=== PATIENT | male | born 1960 | race Caucasian/White ===

== ENCOUNTER 2019-12-21 11:53 | Inpatient (IN) ==
--- NOTE | 2019-12-21 13:17 | Emergency Department Note ---
Impression & Plan COVID-19 virus infection, Hypoxia, Acute dyspnea ED Provider Note Provider: Desmond Rojas MD DATE OF SERVICE: 12/21/2019 CHIEF COMPLAINT: Shortness of breath HISTORY OF PRESENT ILLNESS: Patient is a 59-year-old gentleman history of mitral valve prolapse, hypertension, hyperlipidemia on atorvastatin metoprolol presenting today for hypoxia via ambulance from home. Patient recent travel 2 w eeks ago to [place] returned home with his . Approximately 10 days ago began to have some mild fevers or shortness of breath along with his . Tested approximately 6 days ago for coronavirus and was positive. Monitoring himself at home with antipyretics and monitoring his pulse ox. States over the last several days he has worsening shortness of breath and swelling as well as recurrent fevers fatigue and myalgias. Today he stated his pulse ox at home got down to the mid 80s and he was short of breath so he called 911. Patient denies significant GI upset or abdominal pain at this time. Denies any leg swelling. Did take some Tylenol around noon today and febrile upon arrival. Patient is not a smoker. Minimal chest discomfort at this time. Moderate headache and dry slight cough. REVIEW OF SYSTEMS: A total of 10 review of systems was obtained and negative except as stated above in the HPI. PAST MEDICAL HISTORY: As noted above MEDICATIONS: Reviewed medications include atorvastatin metoprolol SOCIAL HISTORY: Lives at home with , non-smoker PHYSICAL EXAM: GENERAL: alert and oriented in no acute distress on stretcher on oxygen appears fatigued Head: normocephalic and atraumatic EYES: No injection, discharge or icterus. PERRL, EOMI. NECK: Trachea midline. Supple. ENT: Mucous membranes pink and moist. Pharynx without erythema or exudate. LUNGS: Airway patent. No retractions. Breath sounds clear but some increased work of breathing. HEART: Regular rate and rhythm. No chest wall tenderness ABDOMEN: Soft and non-tender, without guarding or rebound. SKIN: Acyanotic, warm, dry, without rashes EXTREMITIES: Without swelling, tenderness or deformity NEUROLOGICAL: No focal deficits. No aphasia. No facial droop or slurred speech. EK bpm sinus rhythm first-degree AV block. No PVC. No acute ST segment elevation notable. CONTINUOUS CARDIAC MONITORING: was ordered and showed a heart rate of 98 bpm in first-degree AV block Patient's hypertension was referred to the hospitalist HOSPITAL COURSE: 1258 Patient was first seen and H&P performed. 1415 Patient reassessed and updated. Patient was agreeable with the plan for admission. 1440 discussed with the [facility] hospitalist Dr. Tidwell. Patient's laboratory studies and imaging reviewed. Differential includes Reactive airway disease, pneumonia, pneumothorax, COPD, CHF, infections, cardiac ischemia, pulmonary embolism, musculoskeletal, gastrointestinal, as well as other pathologies. IMPRESSION/MEDICAL DECISION MAKING: Patient presents with known coronavirus positive worsening shortness of breath hypoxia fevers and myalgias. Hypoxic on room air. Persistent fevers. Recent travel to notice of leg swelling. I have a lower suspicion this represents acute DVT. Troponin is detectable but not abnormal concerns could be more demand as he does not have real chest pain complaints more of dyspnea. Not anticoagulated at home. No leukocytosis. Mild lymphopenia. Ferritin is e levated. Concerns this is worsening COVID infection. Some improvement with some nasal cannula oxygen here. To close for additional Tylenol upon initial evaluation given he took some just at noon. Blood cultures and lactate were sent as well. Lower suspicion for bacterial infection although the chest x-ray shows bilateral parenchymal findings I believe this is likely more of a viral syndrome. Patient requires hospitalization and he was in agreement with this. Will defer any experimental treatment modalities to the inpatient team at this time. DIAGNOSIS: Hypoxia, COVID-19 infection, shortness of breath DISPOSITION: Hospitalist will evaluate Patient was agreeable with this plan. Past Med/Surg History Medical History (Updated 12/21/19 @ 15:50 by Osmany Tidwell MD) Non-sustained ventricular tachycardia Paroxysmal atrial fibrillation Social History Preferred Language: Upper Sorbian Communication Ability: Effective Administrative Specialist Required: No Beliefs That Will Affect Care: None Current Living Situation: Spouse Other Information That Helps Us Care for You: No Feels Safe at Home: Yes Safety Concerns: Feels Safe At This Time Smoking Status: Never smoker Tobacco Type: cigars ; Hx Alcohol Use: Yes Alcohol type: beer, wine and hard liquor Hx Substance Use: No Allergies Allergies Allergy/AdvReac Type Severity Reaction Status Date / Time Penicillins Allergy Mild Verified 12/21/19 14:43 Home Meds Home Medications Medication Instructions Recorded Confirmed atorvastatin 20 mg PO HS 12/21/19 12/21/19 metoprolol succinate 50 mg PO QAM 12/21/19 12/21/19 metoprolol succinate 100 mg PO HS 12/21/19 12/21/19 naproxen 500 mg PO DAILY 12/21/19 12/21/19 Results & Data (ED) Vital Signs Vital Signs - 24 hr 12/21/19 12:04 12/21/19 13:25 12/21/19 13:43 Temperature 38.4 C H Temperature Source Oral Pulse Rate 94 H Pulse Rate [Apical] 101 H Pulse Rate from SpO2 Sensor Respiratory Rate 20 22 Blood Pressure 141/73 H Blood Pressure [Left Arm] 156/86 H Blood Pressure Mean 95 Blood Pressure Mean [Left Arm] 109 Pulse Oximetry 90 95 94 Oxygen Delivery Method Room Air Nasal Cannula Nasal Cannula Nasal Cannula Oxygen Flow Rate 0 3 3 Sepsis Recent Fever Within 48 Hours Yes Sepsis New/Unexplained Change in Mental Status No Sepsis Action Taken by Nursing No Action Required Oxygen Flow Rate - Titration 2.5 Pulse Oximetry Post Tiitration 94 12/21/19 14:30 Temperature Temperature Source Pulse Rate Pulse Rate [Apical] Pulse Rate from SpO2 Sensor 92 H Respiratory Rate Blood Pressure 149/89 H Blood Pressure [Left Arm] Blood Pressure Mean 127 Blood Pressure Mean [Left Arm] Pulse Oximetry 96 Oxygen Delivery Method Oxygen Flow Rate Sepsis Recent Fever Within 48 Hours Sepsis New/Unexplained Change in Mental Status Sepsis Action Taken by Nursing Oxygen Flow Rate - Titration Pulse Oximetry Post Tiitration Laboratory Data Result diagrams: 12/21/19 12:16 12/21/19 14:06 Lab Results 12/21/19 12/21/19 12/21/19 Range/Units 12:16 12:16 12:16 WBC 5.71 (4.8-10.8) K/uL RBC 4.82 (4.7-6.1) M/uL Hgb 15.0 (14.0-18.0) g/dL Hct 42.2 (42-52) % MCV 87.6 (80-100) fL MCH 31.1 (25-34) pg MCHC 35.5 (32-36) g/dL RDW Std Deviation 42.8 (36.4-46.3) fL RDW Coeff of Alireza 13.4 (11.5-14.5) % Plt Count 113 L (130-400) K/uL MPV 11.3 H (7.4-10.4) fL Immature Gran % (Auto) 0.2 % Neut % (Auto) 83.3 % Lymph % (Auto) 11.4 % [place] % (Auto) 4.9 % Eos % (Auto) 0.0 % Baso % (Auto) 0.2 % Neut # (Auto) 4.76 (1.4-6.5) K/uL Lymph # (Auto) 0.65 L (1.2-3.4) K/uL [place] # (Auto) 0.28 (0.11-0.59) K/uL Eos # (Auto) 0.00 (0-0.5) K/uL Baso # (Auto) 0.01 (0-0.2) K/uL Immature Gran # (Auto) 0.01 (0.00-0.02) K/uL PT 10.9 (9.0-12.0) Seconds INR 1.0 (0.9-1.1) APTT 28.5 (21.0-31.0) Seconds PTT Ratio 1.0 D-Dimer 2280 H* (0-500) ug/L FEU Sodium 135 L (136-145) mmol/L Potassium (3.5-5.1) mmol/L Chloride 102 (98-107) mmol/L Carbon Dioxide 28 (21-32) mmol/L Anion Gap 5.0 (3-11) BUN 11 (7-18) mg/dl Creatinine 0.91 (0.6-1.4) mg/dl Est Cr Clr Drug Dosing 98.1 ml/min Est GFR ( Amer) 105.8 Est GFR (Non-Af Amer) 91.3 BUN/Creatinine Ratio 11.8 (10-20) Glucose 134 H (70-99) mg/dl Lactate (0.4-2.0) mmol/L Calcium 8.5 (8.5-10.1) mg/dl Magnesium (1.8-2.4) mg/dl Ferritin 1000.1 H (8-388) ng/ml Total Bilirubin 0.8 (0.2-1) mg/dl AST (15-37) U/L ALT 48 (12-78) U/L Alkaline Phosphatase 54 (45-117) U/L Lactate Dehydrogenase Troponin I 0.018 (0-0.045) ng/ml NT-Pro-B Natriuret Pep (0-900) pg/ml Total Protein 7.7 (6.4-8.2) gm/dl Albumin 3.2 L (3.4-5.0) gm/dl Globulin 4.5 H (2.5-4.0) gm/dl Albumin/Globulin Ratio 0.7 L (0.9-2) Urine Color Urine Appearance (Clear) Urine pH (4.5-7.5) Ur Specific Gil[place] (1.000-1.030) Urine Protein (Negative) Urine Glucose (UA) (Negative) Urine Ketones (Negative) Urine Blood (Negative) Urine Nitrite (Negative) Urine Bilirubin (Negative) Urine Urobilinogen (Negative) Ur Leukocyte Esterase (Negative) Urine WBC (Auto) (0-5) /hpf Urine RBC (Auto) (0-4) /hpf U Hyaline Cast (Auto) (0-5) /lpf U Epithel Cells (Auto) (0-5) /lpf Urine Bacteria (Auto) (Negative) 12/21/19 12/21/19 12/21/19 Range/Units 12:16 12:16 14:06 WBC (4.8-10.8) K/uL RBC (4.7-6.1) M/uL Hgb (14.0-18.0) g/dL Hct (42-52) % MCV (80-100) fL MCH (25-34) pg MCHC (32-36) g/dL RDW Std Deviation (36.4-46.3) fL RDW Coeff of Alireza (11.5-14.5) % Plt Count (130-400) K/uL MPV (7.4-10.4) fL Immature Gran % (Auto) % Neut % (Auto) % Lymph % (Auto) % [place] % (Auto) % Eos % (Auto) % Baso % (Auto) % Neut # (Auto) (1.4-6.5) K/uL Lymph # (Auto) (1.2-3.4) K/uL [place] # (Auto) (0.11-0.59) K/uL Eos # (Auto) (0-0.5) K/uL Baso # (Auto) (0-0.2) K/uL Immature Gran # (Auto) (0.00-0.02) K/uL PT (9.0-12.0) Seconds INR (0.9-1.1) APTT (21.0-31.0) Seconds PTT Ratio D-Dimer (0-500) ug/L FEU Sodium (136-145) mmol/L Potassium (3.5-5.1) mmol/L Chloride (98-107) mmol/L Carbon Dioxide (21-32) mmol/L Anion Gap (3-11) BUN (7-18) mg/dl Creatinine (0.6-1.4) mg/dl Est Cr Clr Drug Dosing ml/min Est GFR ( Amer) Est GFR (Non-Af Amer) BUN/Creatinine Ratio (10-20) Glucose (70-99) mg/dl Lactate 2.1 H* (0.4-2.0) mmol/L Calcium (8.5-10.1) mg/dl Magnesium (1.8-2.4) mg/dl Ferritin (8-388) ng/ml Total Bilirubin (0.2-1) mg/dl AST (15-37) U/L ALT (12-78) U/L Alkaline Phosphatase (45-117) U/L Lactate Dehydrogenase Cancelled Troponin I (0-0.045) ng/ml NT-Pro-B Natriuret Pep (0-900) pg/ml Total Protein (6.4-8.2) gm/dl Albumin (3.4-5.0) gm/dl Globulin (2.5-4.0) gm/dl Albumin/Globulin Ratio (0.9-2) Urine Color Yellow Urine Appearance Clear (Clear) Urine pH >= 9.0 H (4.5-7.5) Ur Specific Gilman 1.023 (1.000-1.030) Urine Protein 2+ H (Negative) Urine Glucose (UA) Negative (Negative) Urine Ketones Negative (Negative) Urine Blood Negative (Negative) Urine Nitrite Negative (Negative) Urine Bilirubin Negative (Negative) Urine Urobilinogen Negative (Negative) Ur Leukocyte Esterase Negative (Negative) Urine WBC (Auto) 0 (0-5) /hpf Urine RBC (Auto) 0-4 (0-4) /hpf U Hyaline Cast (Auto) 0 (0-5) /lpf U Epithel Cells (Auto) 10-20 H (0-5) /lpf Urine Bacteria (Auto) Negative (Negative) 12/21/19 12/21/19 12/21/19 Range/Units 14:06 14:06 14:06 WBC (4.8-10.8) K/uL RBC (4.7-6.1) M/uL Hgb (14.0-18.0) g/dL Hct (42-52) % MCV (80-100) fL MCH (25-34) pg MCHC (32-36) g/dL RDW Std Deviation (36.4-46.3) fL RDW Coeff of Alireza (11.5-14.5) % Plt Count (130-400) K/uL MPV (7.4-10.4) fL Immature Gran % (Auto) % Neut % (Auto) % Lymph % (Auto) % [place] % (Auto) % Eos % (Auto) % Baso % (Auto) % Neut # (Auto) (1.4-6.5) K/uL Lymph # (Auto) (1.2-3.4) K/uL [place] # (Auto) (0.11-0.59) K/uL Eos # (Auto) (0-0.5) K/uL Baso # (Auto) (0-0.2) K/uL Immature Gran # (Auto) (0.00-0.02) K/uL PT (9.0-12.0) Seconds INR (0.9-1.1) APTT (21.0-31.0) Seconds PTT Ratio D-Dimer (0-500) ug/L FEU Sodium (136-145) mmol/L Potassium 3.5 (3.5-5.1) mmol/L Chloride (98-107) mmol/L Carbon Dioxide (21-32) mmol/L Anion Gap (3-11) BUN (7-18) mg/dl Creatinine (0.6-1.4) mg/dl Est Cr Clr Drug Dosing ml/min Est GFR ( Amer) Est GFR (Non-Af Amer) BUN/Creatinine Ratio (10-20) Glucose (70-99) mg/dl Lactate (0.4-2.0) mmol/L Calcium (8.5-10.1) mg/dl Magnesium 2.3 (1.8-2.4) mg/dl Ferritin (8-388) ng/ml Total Bilirubin (0.2-1) mg/dl AST 58 H (15-37) U/L ALT (12-78) U/L Alkaline Phosphatase (45-117) U/L Lactate Dehydrogenase 431 H Troponin I (0-0.045) ng/ml NT-Pro-B Natriuret Pep 247 (0-900) pg/ml Total Protein (6.4-8.2) gm/dl Albumin (3.4-5.0) gm/dl Globulin (2.5-4.0) gm/dl Albumin/Globulin Ratio (0.9-2) Urine Color Urine Appearance (Clear) Urine pH (4.5-7.5) Ur Specific Gilman (1.000-1.030) Urine Protein (Negative) Urine Glucose (UA) (Negative) Urine Ketones (Negative) Urine Blood (Negative) Urine Nitrite (Negative) Urine Bilirubin (Negative) Urine Urobilinogen (Negative) Ur Leukocyte Esterase (Negative) Urine WBC (Auto) (0-5) /hpf Urine RBC (Auto) (0-4) /hpf U Hyaline Cast (Auto) (0-5) /lpf U Epithel Cells (Auto) (0-5) /lpf Urine Bacteria (Auto) (Negative) Administered Medications Enoxaparin Sodium (Lovenox) 40 mg SQ Q24H EVIE Stop: 01/20/20 19:59 Last Admin: 12/21/19 20:29 Dose: 40 mg Documented by: [id number] Metoprolol Succinate (Toprol Xl) 100 mg PO QPM EVIE Stop: 01/20/20 20:59 Last Admin: 12/21/19 20:26 Dose: 100 mg Documented by: [id number] Sodium Chloride (Sodium Chloride Flush) 30 ml IV Q24H EVIE Stop: 12/25/19 16:16 Last Admin: 12/21/19 20:34 Dose: 30 ml Documented by: [id number] Discontinued Medications Acetaminophen (Tylenol) Confirm Administered Dose 650 mg .ROUTE .STK-MED ONE Stop: 12/21/19 17:39 Last Admin: 12/21/19 18:55 Dose: Not Given Documented by: [id number] Sodium Chloride (Nss 1000ml) 1,000 mls @ 999 mls/hr IV .Q1H1M ONE Stop: 12/21/19 15:00 Last Infusion: 12/21/19 15:51 Dose: 0 mls/hr Documented by: [id number] Admin: 12/21/19 14:16 Dose: 999 mls/hr Documented by: [id number] Lactated Ringer's (Lr) 1,000 mls @ 999 mls/hr IV .Q1H1M ONE Stop: 12/21/19 16:49 Last Admin: 12/21/19 19:54 Dose: Not Given Documented by: [id number] Remdesivir 200 mg/ Sodium (Chloride) 250 mls @ 125 mls/hr IV NOW ONE; Protocol Stop: 12/21/19 18:14 Last Infusion: 12/21/19 20:32 Dose: 0 mls/hr Documented by: [id number] Admin: 12/21/19 17:36 Dose: 125 mls/hr Documented by: [id number] Discharge Plan Visit Data *Final* Discharge Date/Time: 12/21/19 17:51 Chief Complaint: Shortness of Breath/Dyspnea ED Provider: Desmond Rojas Discharge Problem: COVID-19 virus infection, Hypoxia, Acute dyspnea Patient Disposition: Admitted As Inpatient Discharge Instructions Interventions: ED Discharge Assessment Last Done: 12/21/19 17:51
[2019-12-21 13:21] LABS: Basophils # (auto) 0.01 K/uL (0-0.2); Basophils % (auto) 0.2 %; Hematocrit (blood only) 42.2 % (42-52); Immature Granulocytes # (auto) 0.01 K/uL (0.00-0.02); Immature Granulocytes % (auto) 0.2 %; Lymphocytes # (auto) 0.65 K/uL (1.2-3.4); Lymphocytes % (auto) 11.4 %; Mean Corpuscular Hemoglobin 31.1 pg (25-34); Mean Corpuscular Hgb Conc 35.5 g/dL (32-36); Mean Corpuscular Volume 87.6 fL (80-100); Mean Platelet Volume 11.3 fL (7.4-10.4); Monocytes # (auto) 0.28 K/uL (0.11-0.59); Monocytes % (auto) 4.9 %; Neutrophils # (auto) 4.76 K/uL (1.4-6.5); Neutrophils % (auto) 83.3 %; Platelet Count 113 K/uL (130-400); RDW Coefficient of Variation 13.4 % (11.5-14.5); RDW Standard Deviation 42.8 fL (36.4-46.3); Red Blood Count 4.82 M/uL (4.7-6.1); White Blood Count 5.71 K/uL (4.8-10.8)
[2019-12-21 13:30] LABS: Albumin Level 3.2 gm/dl (3.4-5.0); BUN Creatinine Ratio 11.8 (10-20); Calcium 8.5 mg/dl (8.5-10.1); Creatinine Clr Calc Pharmacy 98.1 ml/min; Est GFR (African American) 105.8; Est GFR (Non-African American) 91.3
[2019-12-21 13:31] LABS: Partial Thromboplastin Time 28.5 Seconds (21.0-31.0); Prothrombin Time 10.9 Seconds (9.0-12.0)
[2019-12-21 13:34] LABS: D Dimer 2280 ug/L FEU (0-500)
[2019-12-21 13:37] LABS: Albumin Globulin Ratio 0.7 (0.9-2); Bilirubin,Total 0.8 mg/dl (0.2-1); Ferritin 1000.1 ng/ml (8-388); Globulin 4.5 gm/dl (2.5-4.0); Total Protein 7.7 gm/dl (6.4-8.2); Troponin I 0.018 ng/ml (0-0.045)
--- NOTE | 2019-12-21 13:42 | XRay Report ---
XR chest 1V portable CLINICAL HISTORY: Dyspnea COMPARISON STUDY: 04/30/2011 FINDINGS: Interval development of diffuse bilateral parenchymal infiltrative change. Moderate cardiom egaly. Diaphragms are smooth. IMPRESSION: Diffuse bilateral parenchymal infiltrative change ACT 112: Negative or not required by law. The above report was generated using voice recognition software. It may contain grammatical, syntax or spelling errors. Electronically signed by: Darrel Charles M.D. 12/21/2019 1:41 PM
[2019-12-21] MEDS ORDERED: SODIUM CHLORIDE 0.9% 1000ML 1,000 ML IV ONE (14:00)
[2019-12-21 14:27] LABS: Potassium 3.5 mmol/L (3.5-5.1)
[2019-12-21 14:32] LABS: Magnesium 2.3 mg/dl (1.8-2.4)
[2019-12-21 14:47] LABS: Appearance Urine Clear (Clear); Bilirubin Urine Negative (Negative); Blood Urine Negative (Negative); Color Urine Yellow; Glucose Urine UA Negative (Negative); Ketones Urine Negative (Negative); Leukocyte Esterase Urine Negative (Negative); Nitrite Urine Negative (Negative); Specific Gravity Urine 1.023 (1.000-1.030); Urobilinogen Urine Negative (Negative); pH Urine >= 9.0 (4.5-7.5)
[2019-12-21 14:51] LABS: Protein Urine 2+ (Negative)
[2019-12-21 14:53] LABS: Bacteria Urine Automated Negative (Negative); Cast Urine Automated 0 /lpf (0-5); RBC Urine Automated 0-4 /hpf (0-4); WBC Urine Automated 0 /hpf (0-5)
--- NOTE | 2019-12-21 14:56 | History & Physical Report ---
Date of Service December 21, 2019 Assessment & Plan (1) COVID-19 virus infection: Classified as severe due to hypoxia. Multiple abnormal labs in addition indicating severe disease including ALC < 0.8, d-dimer > 1000, LDH >245, ferritin > 500. CRP with AM labs for completeness. Fortunately troponin unremarkable. Discussed with Dr Wang and authorized to start remdesivir, CMP AM for 5 days to monitor LFTs while on this. Patient provided with written information leaflet regarding remdesivir in addition to verbal consent gained from him after discussing with his and discussion of benefits and risks of treatment with knowledge that it has only been approved under emergency use authorization by the FDA. Discussed convalescent plasma with the patient and his . They will look through the website and talk to each other before coming up with a decision. Discussed dexamethasone with the patient and his (top leg was brought up by them) however he currently does not have a bacterial pneumonia and risk of this is expected to be increased with steroids. Currently there is a lack of trial raw data regarding efficacy of this and for which patient population therefore no plans to prescribe this. Encourage alternating prone/supine sleeping. No indication of bacterial pneumonia at present, white blood count normal, procalcitonin normal. Well score 1.5. PE unlikely. Remdesivir 200 mg IV now (day 1), then 100 mg IV daily (day 2-5). Consider extension to 10 days if patient does not demonstrate clinical improvement by day 5. (2) Hypoxia: Not currently in respiratory distress. Aim O2 sats > 90%. Relatively high threshold to escalate oxygen delivery systems due to risk of ARDS (3) Paroxysmal atrial fibrillation: Continue metoprolol succinate as previously prescribed 50mg QAM and 100mg QPM Monitor closely on telemetry for high risk of conversion not being on antiarrhythmics with current illness CHADS-VASC2 0 therefore not previously on anticoagulation (4) Mitral regurgitation: Notable history of this. Improved after 1 L normal saline bolus given in ER. No JVD. Prior history of needing Lasix while in atrial fibrillation but otherwise no history of heart failure. After boluses no need to continue IV fluids as long as patient eating and drinking well. (5) Non-sustained ventricular tachycardia: History of this. Monitor Mg and potassium daily and replace as necessary. Aim K > 4, Mg > 2. (6) DVT prophylaxis: Known increased risk of clotting with COVID-19. Encourage ambulation. Lovenox 40 mg subcu daily Admission and Anticipated Discharge Date Admission Date: December 21, 2019 History of Present Illness Chief Complaint: Shortness of breath, hypoxia, COVID-19 positive Primary Care Provider: Kevin Rodriguez Jr, Ariel Enriquez is a 59 year old male who presents to the ER with worsening shortness of breath after recent diagnosis of COVID-19 as an outpatient. His felt unwell while vacationing in [place] on December 08. She has had coughing and shortness of breath no fevers. Patient fell unwell on December 10, the same date they returned from [place]. Both the patient and his were tested on the and they have been self isolating since returning to [place]. The daughter was also tested and is negative. The patient got his results back yesterday and is positive for SARS-CoV-2. Thinks his may have contracted it at a restaurant they ate at on the as they subsequently found out from a neighboring bar the nursing home manager tested positive for SARS-CoV-2. Initial and ongoing flulike symptoms of myalgias, coughing, occasional wheezing, recurrent fevers. Since the beginning of the illness he has not had 24 hours without a fever. Main reason for coming to the ER today was a sudden feeling of getting worse with myalgias and shortness of breath; he measured his pulse ox at home which was in the mid 80s. He denies any chest pain, orthopnea, PND, claudication, leg swelling. Currently feels dehydrated. Cough is productive without hemoptysis. Prior history is significant for episodes of nonsustained ventricular tachycardia and paroxysmal atrial fibrillation - requiring previous cardioversion. He is not on anticoagulation presumably due to a [id number] score 0. Allergies Allergy/AdvReac Type Severity Reaction Status Date / Time Penicillins Allergy Mild Verified 12/21/19 14:43 Home Medications Home Medications Medication Instructions Recorded Confirmed Type atorvastatin 20 mg PO HS 12/21/19 12/21/19 History metoprolol succinate 50 mg PO QAM 12/21/19 12/21/19 History metoprolol succinate 100 mg PO HS 12/21/19 12/21/19 History naproxen 500 mg PO DAILY 12/21/19 12/21/19 History Past Med/Surg History Medical History Non-sustained ventricular tachycardia Paroxysmal atrial fibrillation Social History Preferred Language: Icelandic Communication Ability: Effective Leak Inspector Required: No Beliefs That Will Affect Care: None Current Living Situation: Spouse Other Information That Helps Us Care for You: No Feels Safe at Home: Yes Safety Concerns: Feels Safe At This Time Smoking Status: Never smoker Tobacco Type: cigars ; Hx Alcohol Use: Yes Alcohol type: beer, wine and hard liquor Hx Substance Use: No Review of Systems Review of Systems: All systems reviewed & are unremarkable except as noted in HPI & below Physical Exam Constitutional: well developed and + obese; + not well nourished and no acute distress Eyes: + anicteric sclerae; normal pupil size ENMT: external ear and nose normal, oropharynx normal Neck: normal visual inspection, trachea midline and + thick neck Respiratory: normal respiratory effort, + cough and able to speak in complete sentences; no respiratory distress, no labored breathing, no retractions, does not use accessory muscles, normal respiratory pattern, expiratory phase not prolonged and no audible wheezes Auscultation: + crackles (Diffuse bilateral fine); no diminished lung sounds and no wheezes Cardiovascular: Rate/Rhythm: regular rate and regular rhythm Heart Sounds: + murmur (Holosystolic at the apex) Vessels: no JVD Extremities: normal capillary refill and + pedal edema (Trace bilateral on ankles only); no calf tenderness Gastrointestinal (Abdomen): normal bowel sounds, soft, nontender, no hepatosplenomegaly Musculoskeletal: no cyanosis or clubbing, extremities motor strength 5/5 Skin: no rashes, warm and dry Neurologic: moves all extremities and awake; no focal motor deficits and not confused Speech / Cognition: normal speech Motor/Sensory: no tremor (Resting) and no sensory deficit Psychiatric: A+Ox3, euthymic affect Genitourinary: no CVA tenderness Lymphatic: no cervical or axillary lymphadenopathy Results & Data Results & Data ([facility]) Vital Signs (Past 12 Hours) Vital Signs Temp Pulse Pulse Resp BP BP Pulse Ox 12/21/19 13:43 101 H 22 156/86 H 94 12/21/19 13:25 95 12/21/19 12:04 38.4 C H 94 H 20 141/73 H 90 Diagnostic Findings XR chest 1V portable IMPRESSION: Diffuse bilateral parenchymal infiltrative change ECG Indication: SOB/dyspnea Rate (beats per minute): 83 Rhythm: normal sinus Findings: + 1st degree AV block Comparison ECG Date: from (May 01, 2011) Change: the following changes noted (PVCs no longer present, WI interval increased) Code Status & VTE Plan Code Status Full VTE Prophylaxis Plan VTE Prophylaxis will be ordered: Yes Critical Care Time Prolonged Care Time Prolonged Care Time: Yes Total Prolonged Care Time: 30 Including time talking to the patient and his over the phone. Counseling patient and his on remdesivir, convalescent plasma and dexamethasone. Coordination of care with pulmonology and pharmacy to start remdesivir. PG Care Time/CCT Total # of Minutes Spent Total Time Spent: 100 Total Time Spent with Patient: Total time spent is greater than 50% in coordination of care (as documented) at patient's floor/unit and/or counseling patient: Prolonged Care Time Prolonged Care Time: Yes Total Prolonged Care Time: 30 Coding Level of Care Code 95431 Initial Inpt Care Lvl 3 Diagnoses COVID-19 virus infection U07.1 Hypoxia R09.02 Paroxysmal atrial fibrillation I48.0 Mitral regurgitation I34.0 Non-sustained ventricular tachycardia I47.2 DVT prophylaxis Z29.9 Additional Codes Prolonged Care Time - Prolonged Care Time: Yes ([id number])
[2019-12-21] MEDS ORDERED: LACTATED RINGER'S 1,000 ML IV ONE (15:49)
[2019-12-21] MEDS ORDERED: REMDESIVIR 200 mg: Day 1 IV ONE (16:15)
[2019-12-21] MEDS ORDERED: ACETAMINOPHEN 325 MG TAB ONE (17:38)
[2019-12-21] MEDS ORDERED: ONDANSETRON INJ 2 MG/ML 2 ML VIAL IV PRN (18:44)
[2019-12-21] MEDS ORDERED: POLYETHYLENE (MIRALAX) 17 GM PACK PO PRN (18:44)
[2019-12-21] MEDS ORDERED: ALUMINUM/MAGNESIUM SUSP 30 ML UDC PO PRN (18:44)
[2019-12-21] MEDS ORDERED: MAGNESIUM HYDROXIDE SUSP 30 ML UDC PO PRN (18:44)
[2019-12-21] MEDS: METOPROLOL SUCC 50MG EXT REL TAB PO SCH (20:26)
[2019-12-21] MEDS: ENOXAPARIN INJ 40 MG/0.4 ML SYR SQ SCH (20:29)
[2019-12-21] MEDS: NSS 30mL Flush, Days 1-5 IV SCH (20:34)
[2019-12-21] MEDS: ATORVASTATIN 20 MG TAB PO SCH (21:12)
[2019-12-21] MEDS: ACETAMINOPHEN 325 MG TAB PO PRN (21:43)
[2019-12-22] MEDS ORDERED: PROMETHAZINE HCL 12.5 MG in SODIUM CHLORIDE 0.9% 50 ML IV PRN (00:23)
[2019-12-22] MEDS: ACETAMINOPHEN 325 MG TAB PO PRN ×4 (03:07→20:58)
[2019-12-22 06:08] LABS: Basophils # (auto) 0.01 K/uL (0-0.2); Basophils % (auto) 0.1 %; Eosinophils # (auto) 0.01 K/uL (0-0.5); Eosinophils % (auto) 0.1 %; Hematocrit (blood only) 40.6 % (42-52); Immature Granulocytes # (auto) 0.02 K/uL (0.00-0.02); Immature Granulocytes % (auto) 0.3 %; Lymphocytes # (auto) 1.13 K/uL (1.2-3.4); Lymphocytes % (auto) 16.2 %; Mean Corpuscular Hemoglobin 30.2 pg (25-34); Mean Corpuscular Hgb Conc 34.5 g/dL (32-36); Mean Corpuscular Volume 87.7 fL (80-100); Mean Platelet Volume 10.3 fL (7.4-10.4); Monocytes % (auto) 5.7 %; Neutrophils # (auto) 5.39 K/uL (1.4-6.5); Neutrophils % (auto) 77.6 %; Platelet Count 107 K/uL (130-400); RDW Coefficient of Variation 13.7 % (11.5-14.5); RDW Standard Deviation 43.8 fL (36.4-46.3); Red Blood Count 4.63 M/uL (4.7-6.1); White Blood Count 6.96 K/uL (4.8-10.8)
[2019-12-22 06:36] LABS: BUN Creatinine Ratio 12.2 (10-20); C Reactive Protein 13.9 mg/dl (0-0.29); Calcium 8.2 mg/dl (8.5-10.1); Creatinine Clr Calc Pharmacy 108.9 ml/min; Est GFR (Non-African American) 96.6; Magnesium 2.1 mg/dl (1.8-2.4); Potassium 3.3 mmol/L (3.5-5.1)
[2019-12-22 06:39] LABS: Albumin Globulin Ratio 0.8 (0.9-2); Bilirubin,Total 0.8 mg/dl (0.2-1); Globulin 3.7 gm/dl (2.5-4.0); Total Protein 6.7 gm/dl (6.4-8.2)
[2019-12-22] MEDS: METOPROLOL SUCC 50MG EXT REL TAB PO SCH ×2 (07:42→22:35)
[2019-12-22] MEDS ORDERED: METOPROLOL SUCC 50MG EXT REL TAB PO SCH (08:00)
--- NOTE | 2019-12-22 13:03 | Hospitalist Progress Note ---
Date of Service December 22, 2019 Assessment & Plan (1) COVID-19 virus infection: Classified as severe due to hypoxia. - On remdesivir with 200 mg on 12/19; now 100 mg IV daily until 12/24. Could extend if needed. - Entered in the [place] trial for convalescent plasma -> Blood bank working on it now. - Considering dexamethasone 6mg PO daily as well per RECOVERY trial preliminary results. (Per study review, earlier is not necessarily better so will defer until discussing with patient.) - Encourage self-proning to patient today. - Supplemental O2 as needed (2) Hypoxia: Due to Covid. - Aim O2 sats > 90%. (3) Paroxysmal atrial fibrillation: Rate-controlled at present. CHADS-VASC2 0 therefore not previously on anticoagulation. - Continue metoprolol succinate as previously prescribed 50mg QAM and 100mg QPM (4) Mitral regurgitation: Notable history of this. No JVD. Prior history of needing Lasix while in atrial fibrillation but otherwise no history of heart failure. - Monitor (5) Non-sustained ventricular tachycardia: History of this. Monitor Mg and potassium daily and replace as necessary. - Aim K > 4, Mg > 2. (6) DVT prophylaxis: Known increased risk of clotting with COVID-19. - Encouraged ambulation. - Lovenox 40 mg subcu daily Admission and Anticipated Discharge Date Admission Date: December 21, 2019 Subjective Still with some shortness of breath and fevers. Reports no chest pain, abdominal pain, nausea, or vomiting. Physical Exam Constitutional: WD/WN, vitals as above Eyes: EOM intact bilaterally; no conjunctival abnormality ENMT: external ear and nose normal, oropharynx normal Neck: trachea midline, no thyromegaly normal visual inspection Respiratory: normal respiratory effort, lungs clear to auscultation no respiratory distress Cardiovascular: Rate/Rhythm: regular rate and + irregularly irregular Gastrointestinal (Abdomen): Inspection/Auscultation: abdomen normal to inspection; abdomen not distended Musculoskeletal: no cyanosis or clubbing, extremities motor strength 5/5 Skin: no rashes, warm and dry Neurologic: moves all extremities and awake Psychiatric: Orientation: alert, oriented to person and cooperative Results & Data Results & Data ([facility]) Vital Signs (Past 12 Hours) Vital Signs Temp Pulse Pulse Resp BP BP Pulse Ox 12/22/19 11:32 39 C H 87 20 131/77 90 12/22/19 07:42 36.9 C 89 20 156/81 H 94 12/22/19 07:17 78 12/22/19 06:25 38.5 C H 12/22/19 05:35 93 12/22/19 03:17 92 12/22/19 03:02 39.4 C H 88 20 135/81 91 PG Care Time/CCT Total # of Minutes Spent Total Time Spent with Patient: Total time spent is greater than 50% in coordination of care (as documented) at patient's floor/unit and/or counseling patient: Coding Level of Care Code 15545 Subseq Hosp Care Lvl 3 Diagnoses COVID-19 virus infection U07.1 Hypoxia R09.02 Paroxysmal atrial fibrillation I48.0 Mitral regurgitation I34.0 Non-sustained ventricular tachycardia I47.2 DVT prophylaxis Z29.9
--- NOTE | 2019-12-22 13:03 | Electrocardiogram Report ---
Test Reason : Blood Pressure : / mmHG Vent. Rate : 100 BPM Atrial Rate : 100 BPM P-R Int : 218 ms QRS Dur : 116 ms QT Int : 338 ms P-R-T Axes : 027 036 029 degrees QTc Int : 436 ms Poor data quality, interpretation may be adversely affected Sinus rhythm with 1st degree A-V block Poor R wave progression, consider anterior NM vs. lead placement vs. LVH Abnormal ECG When compared with ECG of 01-MAY-2011 14:36, Premature ventricular complexes are no longer Present T wave inversion no longer evident in Inferior leads Confirmed by Shahbaz Maynard ([id number]) on 12/22/2019 1:02:56 PM Referred By: REFERRED SELF Confirmed By:Shahbaz Maynard
[2019-12-22] MEDS: POTASSIUM CHLORIDE 10 MEQ TABCR PO SCH ×2 (13:21→22:42)
--- NOTE | 2019-12-22 13:22 | Electrocardiogram Report ---
Test Reason : Blood Pressure : / mmHG Vent. Rate : 083 BPM Atrial Rate : 083 BPM P-R Int : 264 ms QRS Dur : 118 ms QT Int : 378 ms P-R-T Axes : 036 048 016 degrees QTc Int : 444 ms Sinus rhythm with 1st degree A-V block Non-specific intra-ventricular conduction delay Borderline ECG When compared with ECG of 01-MAY-2011 14:36, Premature ventricular complexes are no longer Present AL interval has increased Confirmed by Shahbaz Maynard ([id number]) on 12/22/2019 1:22:05 PM Referred By: REFERRED SELF Confirmed By:Shahbaz Maynard
[2019-12-22] MEDS ORDERED: DEXTROSE 50% 50 ML SYRINGE IV PRN (13:34)
[2019-12-22] MEDS ORDERED: GLUCAGON FOR INJ 1 MG VIAL SQ PRN (13:34)
[2019-12-22] MEDS ORDERED: GLUCOSE 40% GEL 15 GM TUBE PO PRN (13:34)
[2019-12-22] MEDS ORDERED: CARBOHYDRATES FOR HYPOGLYCEMIA PO PRN (13:34)
[2019-12-22] MEDS ORDERED: GLUCOSE 10 TABS/TUBE PO PRN (13:34)
[2019-12-22] MEDS ORDERED: SODIUM CHLORIDE 0.65% NA SOLN 45 ML (OCEAN) PRN (14:14)
[2019-12-22] MEDS ORDERED: SODIUM CHLORIDE 0.65% NA SOLN 45 ML (OCEAN) ONE (14:16)
[2019-12-22] MEDS: REMDESIVIR 100mg: Days 2-5 IV SCH (15:36)
[2019-12-22] MEDS: INSULIN ASPART 100 UNITS/ML 3 ML PEN SC SCH ×2 (17:19→20:28)
[2019-12-22] MEDS: NSS 30mL Flush, Days 1-5 IV SCH (17:20)
[2019-12-22] MEDS: ENOXAPARIN INJ 40 MG/0.4 ML SYR SQ SCH (22:34)
[2019-12-22] MEDS: ATORVASTATIN 20 MG TAB PO SCH (22:36)
[2019-12-23] MEDS: ACETAMINOPHEN 325 MG TAB PO PRN ×3 (04:35→15:27)
[2019-12-23 06:14] LABS: Hematocrit (blood only) 40.7 % (42-52); Hemoglobin 14.1 g/dL (14.0-18.0); Mean Corpuscular Hemoglobin 30.9 pg (25-34); Mean Corpuscular Hgb Conc 34.6 g/dL (32-36); Mean Corpuscular Volume 89.3 fL (80-100); Mean Platelet Volume 10.2 fL (7.4-10.4); Platelet Count 125 K/uL (130-400); RDW Coefficient of Variation 13.5 % (11.5-14.5); RDW Standard Deviation 44.4 fL (36.4-46.3); Red Blood Count 4.56 M/uL (4.7-6.1); White Blood Count 7.35 K/uL (4.8-10.8)
[2019-12-23 06:46] LABS: Albumin Level 2.9 gm/dl (3.4-5.0); BUN Creatinine Ratio 19.9 (10-20); Calcium 8.4 mg/dl (8.5-10.1); Creatinine Clr Calc Pharmacy 119.2 ml/min; Est GFR (African American) 116.2; Est GFR (Non-African American) 100.3; Magnesium 2.3 mg/dl (1.8-2.4); Potassium 3.8 mmol/L (3.5-5.1)
[2019-12-23 06:48] LABS: Albumin Globulin Ratio 0.7 (0.9-2); Total Protein 6.9 gm/dl (6.4-8.2)
[2019-12-23] MEDS: METOPROLOL SUCC 50MG EXT REL TAB PO SCH ×2 (07:24→20:53)
[2019-12-23 07:37] LABS: Estimated Average Glucose 160 mg/dl; Hemoglobin A1C 7.2 % (4.5-5.6)
[2019-12-23] MEDS: INSULIN ASPART 100 UNITS/ML 3 ML PEN SC SCH ×4 (08:11→20:54)
--- NOTE | 2019-12-23 14:58 | Hospitalist Progress Note ---
Date of Service December 23, 2019 Assessment & Plan (1) COVID-19 virus infection: Classified as severe due to hypoxia. - On remdesivir with 200 mg on 12/19; now 100 mg IV daily until 12/24. Could extend if needed. - Entered in the [place] trial for convalescent plasma -> Received on 12/21 @ 9pm. - Started dexamethasone 6mg PO daily as well per RECOVERY trial preliminary results. - Encourage self-proning to patient yesterday & today. He is doing it for ~3 hours a day. Encouraged him to do it as much as possible. - Supplemental O2 as needed; needs rising. Now on 8L. (2) Hypoxia: Due to Covid. - Aim O2 sats > 90%. (3) Diabetes: A1c is 7.2%, meaning he is diabetic. New diagnosis for him. - Sliding scale insulin - Monitor sugars while on steroids. (4) Paroxysmal atrial fibrillation: Rate-controlled at present. CHADS-VASC2 0 therefore not previously on anticoagulation. - Continue metoprolol succinate as previously prescribed 50mg QAM and 100mg QPM (5) Mitral regurgitation: Notable history of this. No JVD. Prior history of needing Lasix while in atrial fibrillation but otherwise no history of heart failure. - Monitor (6) Non-sustained ventricular tachycardia: History of this. Monitor Mg and potassium daily and replace as necessary. - Aim K > 4, Mg > 2. (7) DVT prophylaxis: Known increased risk of clotting with COVID-19. - Encouraged ambulation. - Lovenox 40 mg subcu daily Admission and Anticipated Discharge Date Admission Date: December 21, 2019 Subjective Subjectively feels better today, though is O2 demand is increasing, and he appears to be coughing more to me. Low appetite. Diarrhea which was ongoing prior to plasma. Reports no fevers/chills, chest pain, abdominal pain, nausea, or vomiting. Physical Exam Constitutional: WD/WN, vitals as above Eyes: EOM intact bilaterally; no conjunctival abnormality ENMT: external ear and nose normal, oropharynx normal Neck: trachea midline, no thyromegaly normal visual inspection Respiratory: normal respiratory effort, lungs clear to auscultation no respiratory distress Cardiovascular: Rate/Rhythm: regular rate and + irregularly irregular Gastrointestinal (Abdomen): Inspection/Auscultation: abdomen normal to inspection; abdomen not distended Musculoskeletal: no cyanosis or clubbing, extremities motor strength 5/5 Skin: no rashes, warm and dry Neurologic: moves all extremities and awake Psychiatric: Orientation: alert, oriented to person and cooperative Results & Data Results & Data ([facility]) Vital Signs (Past 12 Hours) Vital Signs Temp Pulse Pulse Resp BP Pulse Ox 12/23/19 11:30 37.4 C 12/23/19 11:00 38.0 C H 81 16 119/70 95 12/23/19 09:34 38.5 C H 12/23/19 07:34 36.8 C 78 16 134/74 92 12/23/19 07:00 78 12/23/19 05:54 37.5 C 86 16 138/82 90 12/23/19 04:30 38.4 C H 12/23/19 03:34 39.5 C H 89 18 134/80 92 PG Care Time/CCT Total # of Minutes Spent Total Time Spent with Patient: Total time spent is greater than 50% in coordination of care (as documented) at patient's floor/unit and/or counseling patient: Coding Level of Care Code 94278 Subseq Hosp Care Lvl 3 Diagnoses COVID-19 virus infection U07.1 Hypoxia R09.02 Diabetes E11.9 Paroxysmal atrial fibrillation I48.0 Mitral regurgitation I34.0 Non-sustained ventricular tachycardia I47.2 DVT prophylaxis Z29.9
[2019-12-23] MEDS: dexAMETHasone 4 MG TAB PO SCH (15:27)
[2019-12-23] MEDS: REMDESIVIR 100mg: Days 2-5 IV SCH (16:26)
[2019-12-23] MEDS: NSS 30mL Flush, Days 1-5 IV SCH (17:31)
[2019-12-23 17:44] LABS: D Dimer 3680 ug/L FEU (0-500)
[2019-12-23] MEDS: ATORVASTATIN 20 MG TAB PO SCH (20:53)
[2019-12-23] MEDS: ENOXAPARIN INJ 40 MG/0.4 ML SYR SQ SCH (20:54)
[2019-12-24] MEDS ORDERED: VANCOMYCIN HCL 2,250 MG in SODIUM CHLORIDE 0.9% 500 ML IV ONE (05:17)
[2019-12-24] MEDS ORDERED: VANCOMYCIN CONSULT ACTIVE PRN (05:17)
--- NOTE | 2019-12-24 05:22 | Communication Note ---
Date of Service: December 24, 2019 Notified that pt had gram positives in clusters growing in one bottle. Possibly a contaminant but given one loading dose of vancomycin. Can consider further treatment with additional doses of vancomycin. Would need to be ordered if deemed necessary. Resident Activity Tracking Resident Involvement: [employer] Coverage Note Care Provided: Adult Hospital Medicine
[2019-12-24 06:43] LABS: Hematocrit (blood only) 39.8 % (42-52); Mean Corpuscular Hemoglobin 30.8 pg (25-34); Mean Corpuscular Hgb Conc 35.2 g/dL (32-36); Mean Corpuscular Volume 87.5 fL (80-100); Mean Platelet Volume 10.1 fL (7.4-10.4); Platelet Count 157 K/uL (130-400); RDW Coefficient of Variation 13.4 % (11.5-14.5); RDW Standard Deviation 42.6 fL (36.4-46.3); Red Blood Count 4.55 M/uL (4.7-6.1); White Blood Count 5.01 K/uL (4.8-10.8)
[2019-12-24 07:06] LABS: D Dimer 2960 ug/L FEU (0-500)
[2019-12-24 07:12] LABS: BUN Creatinine Ratio 21.7 (10-20); Calcium 8.8 mg/dl (8.5-10.1); Creatinine Clr Calc Pharmacy 111.7 ml/min; Est GFR (African American) 113.1; Est GFR (Non-African American) 97.6; Magnesium 2.4 mg/dl (1.8-2.4); Potassium 3.8 mmol/L (3.5-5.1)
[2019-12-24 07:17] LABS: Ferritin 1056.9 ng/ml (8-388)
[2019-12-24] MEDS: dexAMETHasone 4 MG TAB PO SCH (08:12)
[2019-12-24] MEDS: METOPROLOL SUCC 50MG EXT REL TAB PO SCH ×2 (08:14→20:35)
[2019-12-24] MEDS: INSULIN ASPART 100 UNITS/ML 3 ML PEN SC SCH ×4 (08:16→20:21)
--- NOTE | 2019-12-24 08:44 | XRay Report ---
XR chest 1V portable CLINICAL HISTORY: Fevers, Covid, now bacteremia; focal pna? Dyspnea COMPARISON STUDY: 12/21/2019 FINDINGS: Slightly progressive diffuse bilateral parenchymal infiltrative change. Mild cardiomegaly. Diaphragms are smooth. The pulmonary apices are clear. IMPRESSION: Mildly progressive bilateral parenchymal infiltrative change. ACT 112: Negative or not required by law. The above report was generated using voice recognition software. It may contain grammatical, syntax or spelling errors. Electronically signed by: Darrel Charles M.D. 12/24/2019 8:43 AM
--- NOTE | 2019-12-24 12:11 | Pharmacy Report ---
Pharmacy Abx Dose Short Note - Date of Service December 24, 2019 - Assessment & Plan Assessment * 59 year old M admitted for COVID-19 on 12/20, now also starting vancomycin for treatment of GPC bacteremia * WBC wnl. Patient is febrile, but this could be due solely to COVID-19 * 12/20 blood cultures - 1 of 2 became positive for GPC in clusters this AM, >48 hours after cultures were obtained. 2nd culture remains NGTD. PCR is negative for both Staph aureus and MRSA. This is highly suggestive of a coagulase-negative Staph skin contaminant. 2nd set of blood cultures obtained today, after this result. * Procalcitonin ordered for tomorrow AM * SCr stable and at/near baseline with eCrCL 112 mL/min Vancomycin * Loading dose of 24 mg/kg already administered. Will continue with 13 mg/kg q8h * Trough prior to 5th overall dose tomorrow Plan * Vancomycin 1250 mg IV q8 * Can likely discontinue antibiotics tomorrow, if no further evidence for true bacterial infection is revealed. If continued, vancomycin trough ordered for 1330. Pharmacy will continue to follow and will adjust dose/frequency as necessary. Thank you.
[2019-12-24] MEDS: VANCOMYCIN HCL 1,250 MG in SODIUM CHLORIDE 0.9% 250 ML IV SCH ×2 (13:57→20:42)
--- NOTE | 2019-12-24 14:47 | Hospitalist Progress Note ---
Date of Service December 24, 2019 Assessment & Plan (1) COVID-19 virus infection: Classified as severe due to hypoxia. - On remdesivir with 200 mg on 12/19; now 100 mg IV daily until 12/24. Could extend if needed. - Entered in the [place] trial for convalescent plasma -> Received on 12/21 @ 9pm. - Started dexamethasone 6mg PO daily as well per RECOVERY trial preliminary results. - Encourage self-proning to patient yesterday & today. He is doing it for ~3 hours a day. Encouraged him to do it as much as possible. - Supplemental O2 as needed; needs rising. Now on 8L. While proning, he was up to 93% on room air, but dropped when he sat in a chair. (2) Hypoxia: Due to Covid. - Aim O2 sats > 90%. (3) Diabetes: A1c is 7.2%, meaning he is diabetic. New diagnosis for him. - Sliding scale insulin -> Adjusted today. Added NPH for steroids. - Monitor sugars while on steroids. (4) Paroxysmal atrial fibrillation: Rate-controlled at present. CHADS-VASC2 was considered 0; therefore, not previously on anticoagulation. Now, I think he's probably a 1-2 with diabetes & HTN. - Continue metoprolol succinate as previously prescribed 50mg QAM and 100mg QPM - Will discuss with patient re: anticoagulation (5) Mitral regurgitation: Notable history of this. No JVD. Prior history of needing Lasix while in atrial fibrillation but otherwise no history of heart failure. - Monitor (6) Non-sustained ventricular tachycardia: History of this. Monitor Mg and potassium daily and replace as necessary. - Aim K > 4, Mg > 2. (7) DVT prophylaxis: Known increased risk of clotting with COVID-19. - Encouraged ambulation. - Lovenox 40 mg subcu daily Admission and Anticipated Discharge Date Admission Date: December 21, 2019 Subjective Feeling some better today. Less cough; less shortness of breath. Appetite improved with better meal ordering. Reports no fevers/chills, chest pain, abdominal pain, nausea, or vomiting. Physical Exam Constitutional: WD/WN, vitals as above Eyes: EOM intact bilaterally; no conjunctival abnormality ENMT: external ear and nose normal, oropharynx normal Neck: trachea midline, no thyromegaly normal visual inspection Respiratory: normal respiratory effort, lungs clear to auscultation no respiratory distress Cardiovascular: Rate/Rhythm: regular rate and + irregularly irregular Gastrointestinal (Abdomen): Inspection/Auscultation: abdomen normal to inspection; abdomen not distended Musculoskeletal: no cyanosis or clubbing, extremities motor strength 5/5 Skin: no rashes, warm and dry Neurologic: moves all extremities and awake Psychiatric: Orientation: alert, oriented to person and cooperative Results & Data Results & Data ([facility]) Vital Signs (Past 12 Hours) Vital Signs Temp Pulse Resp BP Pulse Ox 12/24/19 07:41 36.9 C 60 22 90 12/24/19 07:31 122/77 PG Care Time/CCT Total # of Minutes Spent Total Time Spent with Patient: Total time spent is greater than 50% in coordination of care (as documented) at patient's floor/unit and/or counseling patient: Coding Level of Care Code 36927 Subseq Hosp Care Lvl 2 Diagnoses COVID-19 virus infection U07.1 Hypoxia R09.02 Diabetes E11.9 Paroxysmal atrial fibrillation I48.0 Mitral regurgitation I34.0 Non-sustained ventricular tachycardia I47.2 DVT prophylaxis Z29.9
[2019-12-24] MEDS: REMDESIVIR 100mg: Days 2-5 IV SCH (16:25)
[2019-12-24] MEDS: NSS 30mL Flush, Days 1-5 IV SCH (16:28)
[2019-12-24] MEDS: ENOXAPARIN INJ 40 MG/0.4 ML SYR SQ SCH (20:14)
[2019-12-24] MEDS: ATORVASTATIN 20 MG TAB PO SCH (20:36)
[2019-12-25 06:06] LABS: Hematocrit (blood only) 38.8 % (42-52); Hemoglobin 13.7 g/dL (14.0-18.0); Mean Corpuscular Hemoglobin 30.8 pg (25-34); Mean Corpuscular Hgb Conc 35.3 g/dL (32-36); Mean Corpuscular Volume 87.2 fL (80-100); Mean Platelet Volume 10.2 fL (7.4-10.4); Platelet Count 181 K/uL (130-400); RDW Coefficient of Variation 13.2 % (11.5-14.5); RDW Standard Deviation 42.5 fL (36.4-46.3); Red Blood Count 4.45 M/uL (4.7-6.1); White Blood Count 6.82 K/uL (4.8-10.8)
[2019-12-25] MEDS: VANCOMYCIN HCL 1,250 MG in SODIUM CHLORIDE 0.9% 250 ML IV SCH ×2 (06:16→14:07)
[2019-12-25 06:44] LABS: BUN Creatinine Ratio 25.8 (10-20); Calcium 8.5 mg/dl (8.5-10.1); Creatinine Clr Calc Pharmacy 103.2 ml/min; Est GFR (African American) 109.8; Est GFR (Non-African American) 94.7; Magnesium 2.5 mg/dl (1.8-2.4); Potassium 3.9 mmol/L (3.5-5.1)
[2019-12-25 06:49] LABS: Ferritin 1054.7 ng/ml (8-388); Phosphorus 3.5 mg/dl (2.5-4.9)
[2019-12-25 06:53] LABS: D Dimer 3770 ug/L FEU (0-500)
[2019-12-25] MEDS: METOPROLOL SUCC 50MG EXT REL TAB PO SCH ×2 (07:49→20:16)
[2019-12-25] MEDS: dexAMETHasone 4 MG TAB PO SCH (07:49)
[2019-12-25] MEDS: INSULIN ASPART 100 UNITS/ML 3 ML PEN SC SCH ×4 (07:55→20:21)
[2019-12-25] MEDS ORDERED: INSULIN HUMAN NPH SC SCH (09:00)
[2019-12-25] MEDS ORDERED: VANCOMYCIN TROUGH ONE (13:30)
--- NOTE | 2019-12-25 14:55 | Hospitalist Progress Note ---
Date of Service December 25, 2019 Assessment & Plan (1) COVID-19 virus infection: Classified as severe due to hypoxia. - On remdesivir with 200 mg on 12/19; now 100 mg IV daily until 12/24. Could extend if needed. - Entered in the [place] trial for convalescent plasma -> Received on 12/21 @ 9pm. - Started dexamethasone 6mg PO daily as well per RECOVERY trial preliminary results. - Encourage self-proning to patient yesterday & today. He is doing it for ~3 hours a day. Encouraged him to do it as much as possible. - Supplemental O2 as needed; needs rising. Now on 8L. While proning, he was up to 93% on room air, but dropped when he sat in a chair. (2) Hypoxia: Due to Covid. - Aim O2 sats > 90%. (3) Diabetes: A1c is 7.2%, meaning he is diabetic. New diagnosis for him. - Sliding scale insulin -> Adjusted today. Added NPH for steroids. - Monitor sugars while on steroids. (4) Paroxysmal atrial fibrillation: In sinus his entire admission. CHADS-VASC2 was considered 0 or 1; therefore, not previously on anticoagulation. Now, I think he's a 2 with diabetes & HTN. - Continue metoprolol succinate as previously prescribed 50mg QAM and 100mg QPM - Discussed anticoagulation with the patient. He is willing to go on anticoagulation. However, he could try a Holter monitor or implantable recorder. If he's never in afib, he may not need anticoagulation. (5) Mitral regurgitation: Notable history of this. No JVD. Prior history of needing Lasix while in atrial fibrillation but otherwise no history of heart failure. - Monitor (6) Non-sustained ventricular tachycardia: History of this. Monitor Mg and potassium daily and replace as necessary. - Aim K > 4, Mg > 2. (7) DVT prophylaxis: Known increased risk of clotting with COVID-19. - Now on apixaban for hx of afib. Admission and Anticipated Discharge Date Admission Date: December 21, 2019 Subjective No major concerns today. Breathing is steadily getting better. Reports no fevers/chills, chest pain, shortness of breath, abdominal pain, nausea, or vomiting. Physical Exam Constitutional: WD/WN, vitals as above Eyes: EOM intact bilaterally; no conjunctival abnormality ENMT: external ear and nose normal, oropharynx normal Neck: trachea midline, no thyromegaly normal visual inspection Respiratory: normal respiratory effort, lungs clear to auscultation no respiratory distress Cardiovascular: Rate/Rhythm: regular rate and + irregularly irregular Gastrointestinal (Abdomen): Inspection/Auscultation: abdomen normal to inspection; abdomen not distended Musculoskeletal: no cyanosis or clubbing, extremities motor strength 5/5 Skin: no rashes, warm and dry Neurologic: moves all extremities and awake Psychiatric: Orientation: alert, oriented to person and cooperative Results & Data Results & Data ([facility]) Vital Signs (Past 12 Hours) Vital Signs Temp Pulse Resp BP Pulse Ox 12/25/19 12:18 92 12/25/19 12:17 66 20 84 L 12/25/19 06:21 36.9 C 71 16 115/79 90 PG Care Time/CCT Total # of Minutes Spent Total Time Spent with Patient: Total time spent is greater than 50% in coordination of care (as documented) at patient's floor/unit and/or counseling patient: Coding Level of Care Code 02379 Subseq Hosp Care Lvl 2 Diagnoses COVID-19 virus infection U07.1 Hypoxia R09.02 Diabetes E11.9 Paroxysmal atrial fibrillation I48.0 Mitral regurgitation I34.0 Non-sustained ventricular tachycardia I47.2 DVT prophylaxis Z29.9
[2019-12-25] MEDS: REMDESIVIR 100mg: Days 2-5 IV SCH (15:19)
[2019-12-25] MEDS: NSS 30mL Flush, Days 1-5 IV SCH (16:27)
[2019-12-25] MEDS: ATORVASTATIN 20 MG TAB PO SCH (20:19)
[2019-12-25] MEDS: APIXABAN 5 MG TABLET PO SCH (20:25)
[2019-12-26 05:50] LABS: Hematocrit (blood only) 40.2 % (42-52); Hemoglobin 13.8 g/dL (14.0-18.0); Mean Corpuscular Hgb Conc 34.3 g/dL (32-36); Mean Corpuscular Volume 87.4 fL (80-100); Mean Platelet Volume 10.1 fL (7.4-10.4); Platelet Count 209 K/uL (130-400); RDW Coefficient of Variation 13.2 % (11.5-14.5); RDW Standard Deviation 42.3 fL (36.4-46.3); White Blood Count 8.11 K/uL (4.8-10.8)
[2019-12-26 06:38] LABS: BUN Creatinine Ratio 28.3 (10-20); Calcium 8.5 mg/dl (8.5-10.1); Creatinine Clr Calc Pharmacy 116.9 ml/min; Est GFR (African American) 115.6; Est GFR (Non-African American) 99.7; Magnesium 2.4 mg/dl (1.8-2.4); Phosphorus 3.8 mg/dl (2.5-4.9); Potassium 4.6 mmol/L (3.5-5.1)
[2019-12-26] MEDS: INSULIN ASPART 100 UNITS/ML 3 ML PEN SC SCH ×4 (07:35→21:02)
[2019-12-26] MEDS: dexAMETHasone 4 MG TAB PO SCH (07:39)
[2019-12-26] MEDS: METOPROLOL SUCC 50MG EXT REL TAB PO SCH ×2 (07:39→21:01)
[2019-12-26] MEDS: APIXABAN 5 MG TABLET PO SCH ×2 (07:40→21:01)
[2019-12-26] MEDS: INSULIN HUMAN NPH SC SCH (07:42)
--- NOTE | 2019-12-26 12:55 | Hospitalist Progress Note ---
Date of Service December 26, 2019 Assessment & Plan (1) COVID-19 virus infection: Classified as severe due to hypoxia. - On remdesivir with 200 mg on 12/19; now 100 mg IV daily until 12/24. Given the fact that he is feeling well, will not extend. - Entered in the [place] trial for convalescent plasma -> Received on 12/21 @ 9pm. - Started dexamethasone 6mg PO daily on 12/22 as well per RECOVERY trial preliminary results. Plan for 7-day course. - Encouraged self-proning to patient. He is doing it for >3 hours a day. It does seem to make a 4-5% difference in his pulse ox. - He could probably go home in another day or so. Over the night of 12/24-12/25, there was some concern about his worsening O2 sats; however, he felt stable/well . On the morning of 12/25, he was at 4L with pulse ox ~89-90% while sitting. He felt well. At this point, he wants to be sure he is doing well before he goes home, and we decided to keep him for at least 1 more day. He can get home O2 from [facility] (even with his Covid diagnosis), but would need a 2-step. When he is discharged, provider needs to go to the [place] [facility] and fill out his discharge report. That should conclude his participation in the study. (2) Hypoxia: Due to Covid. - Aim O2 sats > 88%. (3) Diabetes: A1c is 7.2%, meaning he is diabetic. New diagnosis for him. - Sliding scale insulin -> Adjusted today. Added NPH for steroids. Can likely go home on NPH injections while on dexamethasone, then just metformin. - Monitor sugars while on steroids. (4) Paroxysmal atrial fibrillation: In sinus his entire admission. CHADS-VASC2 was considered 0 or 1; therefore, not previously on anticoagulation. Now, I think he's a 2 with diabetes & HTN. - Continue metoprolol succinate as previously prescribed 50mg QAM and 100mg QPM - Discussed anticoagulation with the patient. He is willing to go on anticoagulation. However, he could try a Holter monitor or implantable recorder. If he's never in afib, he may not need anticoagulation forever. (5) Mitral regurgitation: Notable history of this. No JVD. Prior history of needing Lasix while in atrial fibrillation but otherwise no history of heart failure. - Monitor (6) Non-sustained ventricular tachycardia: History of this. Monitor Mg and potassium daily and replace as necessary. - Aim K > 4, Mg > 2. (7) DVT prophylaxis: Known increased risk of clotting with COVID-19. - Now on apixaban for hx of afib. Admission and Anticipated Discharge Date Admission Date: December 21, 2019 Subjective Doing well this morning. Overnight, he had a rough night with his O2 being turned, then down, then up and frequent asking him to change positions. However, he feels generally well this morning. Physical Exam Constitutional: WD/WN, vitals as above Eyes: EOM intact bilaterally; no conjunctival abnormality ENMT: external ear and nose normal, oropharynx normal Neck: trachea midline, no thyromegaly normal visual inspection Respiratory: normal respiratory effort, lungs clear to auscultation no respiratory distress Cardiovascular: Rate/Rhythm: regular rate and + irregularly irregular Gastrointestinal (Abdomen): Inspection/Auscultation: abdomen normal to inspection; abdomen not distended Musculoskeletal: no cyanosis or clubbing, extremities motor strength 5/5 Skin: no rashes, warm and dry Neurologic: moves all extremities and awake Psychiatric: Orientation: alert, oriented to person and cooperative Results & Data Results & Data ([facility]) Vital Signs (Past 12 Hours) Vital Signs Temp Pulse Resp BP Pulse Ox 12/26/19 07:15 36.9 C 65 18 126/76 91 12/26/19 01:16 37.5 C 65 20 134/68 93 PG Care Time/CCT Total # of Minutes Spent Total Time Spent with Patient: Total time spent is greater than 50% in coordination of care (as documented) at patient's floor/unit and/or counseling patient: Coding Level of Care Code 22317 Subseq Hosp Care Lvl 2 Diagnoses COVID-19 virus infection U07.1 Hypoxia R09.02 Diabetes E11.9 Paroxysmal atrial fibrillation I48.0 Mitral regurgitation I34.0 Non-sustained ventricular tachycardia I47.2 DVT prophylaxis Z29.9
[2019-12-26] MEDS: ATORVASTATIN 20 MG TAB PO SCH (21:01)
[2019-12-27] MEDS: dexAMETHasone 4 MG TAB PO SCH (07:34)
[2019-12-27] MEDS: METOPROLOL SUCC 50MG EXT REL TAB PO SCH ×2 (07:36→20:34)
[2019-12-27] MEDS: APIXABAN 5 MG TABLET PO SCH ×2 (07:38→20:34)
[2019-12-27] MEDS: INSULIN HUMAN NPH SC SCH (08:02)
[2019-12-27] MEDS: INSULIN ASPART 100 UNITS/ML 3 ML PEN SC SCH ×4 (08:04→20:32)
[2019-12-27 09:16] LABS: Hemoglobin 14.6 g/dL (14.0-18.0); Mean Corpuscular Hemoglobin 30.2 pg (25-34); Mean Platelet Volume 10.3 fL (7.4-10.4); Platelet Count 271 K/uL (130-400); RDW Coefficient of Variation 13.4 % (11.5-14.5); RDW Standard Deviation 43.8 fL (36.4-46.3); Red Blood Count 4.83 M/uL (4.7-6.1); White Blood Count 11.42 K/uL (4.8-10.8)
[2019-12-27 09:33] LABS: BUN Creatinine Ratio 22.5 (10-20); Calcium 8.6 mg/dl (8.5-10.1); Creatinine Clr Calc Pharmacy 92.1 ml/min; Est GFR (African American) 100.4; Est GFR (Non-African American) 86.7; Magnesium 2.3 mg/dl (1.8-2.4)
--- NOTE | 2019-12-27 13:49 | Hospitalist Progress Note ---
Date of Service December 27, 2019 Assessment & Plan (1) COVID-19 virus infection: Classified as severe due to hypoxia. -Completed a 5-day course of remdesivir with 200 mg on 12/19; then 100 mg IV daily until 12/24. Given the fact that he is feeling well, the course was not extended - Entered in the [place] trial for convalescent plasma -> Received on 12/21 @ 9pm. - Started dexamethasone 6mg PO daily on 12/22 as well per [facility] trial preliminary results. Plan for 7-day course with end date on December 28. - Encouraged self-proning to patient. He is doing it for >3 hours a day. It does seem to make a 4-5% difference in his pulse ox. Still requiring 4 to 5 L at rest of oxygen but overall clinically improved and less symptomatic. He desaturates to 79% on room air when he takes his oxygen off to eat meals. Encouraged to continue to wear oxygen frequently. - He hopefully will be able to go home tomorrow-he is pretty adamant about this. We will go to step prior to discharge for oxygen requirement at home When he is discharged, provider needs to go to the [place] link and fill out his discharge report. That should conclude his participation in the study. (2) Hypoxia: Due to Covid. - Aim O2 sats > 88%. (3) Diabetes: A1c is 7.2%, meaning he is diabetic. New diagnosis for him. - Sliding scale insulin was adjusted again today by pharmacy-> Added NPH for steroids. Will not send home with insulin as it would only be for 1 more day-rather, will start on metformin upon discharge -Follow-up with PCP - Monitor sugars while on steroids. (4) Paroxysmal atrial fibrillation: In sinus his entire admission. CHADS-VASC2 was considered 0 or 1; therefore, not previously on anticoagulation. Now, I think he's a 2 with diabetes & HTN. - Continue metoprolol succinate as previously prescribed 50mg QAM and 100mg QPM - Discussed anticoagulation with the patient. He is willing to go on anticoagulation. However, he could try a Holter monitor or implantable recorder. If he's never in afib, he may not need anticoagulation forever. -Continue with apixaban upon discharge (5) Mitral regurgitation: Notable history of this. No JVD. Prior history of needing Lasix while in atrial fibrillation but otherwise no history of heart failure. - Monitor (6) Non-sustained ventricular tachycardia: History of this. Monitor Mg and potassium daily and replace as necessary. - Aim K > 4, Mg > 2. (7) DVT prophylaxis: Known increased risk of clotting with COVID-19. - Now on apixaban for hx of afib. Admission and Anticipated Discharge Date Admission Date: December 21, 2019 Anticipated date of discharge: 12/28/19 Subjective Patient feeling much better today, less winded with the same amount of movement walking across the room. He denies any further headache, no sore throat. Denies chest pain or cough. Denies nausea or vomiting, no abdominal pains or diarrhea. He is eating and his appetite is picking up. He is very anxious to leave the hospital. He is still requiring 4 to 5 L of oxygen via oxygen mask. Afebrile now for 3 days. Review of Systems Review of Systems: All systems reviewed & are unremarkable except as noted in HPI & below Physical Exam Constitutional: WD/WN, vitals as above Eyes: + anicteric sclerae Neck: trachea midline, no thyromegaly Respiratory: normal respiratory effort Auscultation: + crackles (At the lower lung collins bilaterally); no rhonchi and no wheezes Cardiovascular: RRR, no murmur, no edema Chest (Breasts): Chest: normal inspection of chest Gastrointestinal (Abdomen): normal bowel sounds, soft, nontender, no hepatosplenomegaly Musculoskeletal: Extremities: extremities normal to inspection; no cyanosis and no clubbing Skin: no rashes, warm and dry Neurologic: moves all extremities and awake; no focal motor deficits Psychiatric: A+Ox3, euthymic affect Lymphatic: no lymphedema Results & Data Results & Data ([facility]) Vital Signs (Past 12 Hours) Vital Signs Temp Pulse Resp BP Pulse Ox 12/27/19 07:24 36.6 C 70 18 128/74 88 L Laboratory Results 12/27/19 12/27/19 12/27/19 Range/Units 16:28 11:32 09:00 WBC (4.8-10.8) K/uL RBC (4.7-6.1) M/uL Hgb (14.0-18.0) g/dL Hct (42-52) % MCV (80-100) fL MCH (25-34) pg MCHC (32-36) g/dL RDW Std Deviation (36.4-46.3) fL RDW Coeff of Alrieza (11.5-14.5) % Plt Count (130-400) K/uL MPV (7.4-10.4) fL Sodium 136 (136-145) mmol/L Potassium 4.0 (3.5-5.1) mmol/L Chloride 102 (98-107) mmol/L Carbon Dioxide 24 (21-32) mmol/L Anion Gap 10.0 (3-11) BUN 22 H (7-18) mg/dl Creatinine 0.95 (0.6-1.4) mg/dl Est Cr Clr Drug Dosing 92.1 ml/min Est GFR ( Amer) 100.4 Est GFR (Non-Af Amer) 86.7 BUN/Creatinine Ratio 22.5 H (10-20) Glucose 241 H (70-99) mg/dl POC Glucose 298 H 229 H (70-99) mg/dl Calcium 8.6 (8.5-10.1) mg/dl Magnesium 2.3 (1.8-2.4) mg/dl 12/27/19 12/27/19 12/26/19 Range/Units 09:00 07:27 20:56 WBC 11.42 H (4.8-10.8) K/uL RBC 4.83 (4.7-6.1) M/uL Hgb 14.6 (14.0-18.0) g/dL Hct 43.0 (42-52) % MCV 89.0 (80-100) fL MCH 30.2 (25-34) pg MCHC 34.0 (32-36) g/dL RDW Std Deviation 43.8 (36.4-46.3) fL RDW Coeff of Alireza 13.4 (11.5-14.5) % Plt Count 271 (130-400) K/uL MPV 10.3 (7.4-10.4) fL Sodium (136-145) mmol/L Potassium (3.5-5.1) mmol/L Chloride (98-107) mmol/L Carbon Dioxide (21-32) mmol/L Anion Gap (3-11) BUN (7-18) mg/dl Creatinine (0.6-1.4) mg/dl Est Cr Clr Drug Dosing ml/min Est GFR ( Amer) Est GFR (Non-Af Amer) BUN/Creatinine Ratio (10-20) Glucose (70-99) mg/dl POC Glucose 172 H 225 H (70-99) mg/dl Calcium (8.5-10.1) mg/dl Magnesium (1.8-2.4) mg/dl PG Care Time/CCT Total # of Minutes Spent Total Time Spent with Patient: Total time spent is greater than 50% in coordination of care (as documented) at patient's floor/unit and/or counseling patient: Coding Level of Care Code 19014 Subseq Hosp Care Lvl 2 Diagnoses COVID-19 virus infection U07.1 Hypoxia R09.02 Diabetes E11.9 Paroxysmal atrial fibrillation I48.0 Mitral regurgitation I34.0 Non-sustained ventricular tachycardia I47.2 DVT prophylaxis Z29.9
[2019-12-27] MEDS: ATORVASTATIN 20 MG TAB PO SCH (20:33)
[2019-12-28] MEDS: dexAMETHasone 4 MG TAB PO SCH (07:38)
[2019-12-28] MEDS: APIXABAN 5 MG TABLET PO SCH (07:38)
[2019-12-28] MEDS: METOPROLOL SUCC 50MG EXT REL TAB PO SCH (07:38)
[2019-12-28] MEDS: INSULIN ASPART 100 UNITS/ML 3 ML PEN SC SCH ×2 (07:45→11:32)
[2019-12-28 08:37] LABS: Basophils # (auto) 0.03 K/uL (0-0.2); Basophils % (auto) 0.2 %; Eosinophils # (auto) 0.21 K/uL (0-0.5); Eosinophils % (auto) 1.7 %; Hematocrit (blood only) 43.7 % (42-52); Hemoglobin 15.3 g/dL (14.0-18.0); Immature Granulocytes % (auto) 3.3 %; Lymphocytes # (auto) 1.42 K/uL (1.2-3.4); Lymphocytes % (auto) 11.8 %; Mean Corpuscular Hemoglobin 30.3 pg (25-34); Mean Corpuscular Volume 86.5 fL (80-100); Mean Platelet Volume 9.9 fL (7.4-10.4); Monocytes % (auto) 7.5 %; Neutrophils # (auto) 9.06 K/uL (1.4-6.5); Neutrophils % (auto) 75.5 %; Platelet Count 256 K/uL (130-400); RDW Coefficient of Variation 13.5 % (11.5-14.5); RDW Standard Deviation 42.2 fL (36.4-46.3); Red Blood Count 5.05 M/uL (4.7-6.1); White Blood Count 12.02 K/uL (4.8-10.8)
[2019-12-28] MEDS ORDERED: FLUTICASONE PROPIONATE NA SPR 16 GM BTL SCH (09:00)
[2019-12-28] MEDS ORDERED: INSULIN HUMAN NPH SC SCH (09:00)
[2019-12-28 09:04] LABS: D Dimer 23340 ug/L FEU (0-500)
[2019-12-28 09:05] LABS: Albumin Level 2.9 gm/dl (3.4-5.0); BUN Creatinine Ratio 26.9 (10-20); C Reactive Protein 3.84 mg/dl (0-0.29); Calcium 8.7 mg/dl (8.5-10.1); Creatinine Clr Calc Pharmacy 113.6 ml/min; Est GFR (African American) 114.3; Est GFR (Non-African American) 98.6; Magnesium 2.5 mg/dl (1.8-2.4); Potassium 4.1 mmol/L (3.5-5.1)
[2019-12-28 09:10] LABS: Albumin Globulin Ratio 0.7 (0.9-2); Total Protein 6.9 gm/dl (6.4-8.2)
--- NOTE | 2019-12-28 16:30 | Discharge Summary ---
Date of Service December 28, 2019 Admission HPI Per Admitting Provider Ariel Enriquez is a 59 year old male who presents to the ER with worsening shortness of breath after recent diagnosis of COVID-19 as an outpatient. His felt unwell while vacationing in [place] on December 08. She has had coughing and shortness of breath no fevers. Patient fell unwell on December 10, the same date they returned from [place]. Both the patient and his were tested on the and they have been self isolating since returning to [place]. The daughter was also tested and is negative. The patient got his results back yesterday and is positive for SARS-CoV-2. Thinks his may have contracted it at a restaurant they ate at on the as they subsequently found out from a neighboring bar the retail and restaurant tested positive for SARS-CoV-2. Initial and ongoing flulike symptoms of myalgias, coughing, occasional wheezing, recurrent fevers. Since the beginning of the illness he has not had 24 hours without a fever. Main reason for coming to the ER today was a sudden feeling of getting worse with myalgias and shortness of breath; he measured his pulse ox at home which was in the mid 80s. He denies any chest pain, orthopnea, PND, claudication, leg swelling. Currently feels dehydrated. Cough is productive without hemoptysis. Prior history is significant for episodes of nonsustained ventricular tachycardia and paroxysmal atrial fibrillation - requiring previous cardioversion. He is not on anticoagulation presumably due to a NXRQE-2-IOEZ score 0. Principal Diagnosis COVID-19, acute respiratory failure with hypoxia Discharge Exam Constitutional WD/WN, vitals as above Eyes + anicteric sclerae Neck trachea midline, no thyromegaly Respiratory normal respiratory effort Auscultation: + crackles (Very minimal today at the right base); no rhonchi and no wheezes Cardiovascular RRR, no murmur, no edema Extremities: no calf tenderness (Negative Homans sign) Chest (Breasts) Chest: normal inspection of chest Gastrointestinal (Abdomen) normal bowel sounds, soft, nontender, no hepatosplenomegaly Musculoskeletal Extremities: extremities normal to inspection; no cyanosis and no clubbing Skin no rashes, warm and dry Neurologic moves all extremities and awake; no focal motor deficits Psychiatric A+Ox3, euthymic affect Lymphatic no lymphedema Discharge Data Allergies Allergy/AdvReac Type Severity Reaction Status Date / Time Penicillins Allergy Mild Verified 12/21/19 14:43 Consultations 12/21/19 14:39 ED Decision to Admit Stat Ordered Studies Chest x-ray x2 Hospital Course (1) COVID-19 virus infection: Classified as severe due to hypoxia. Chest x-ray with bilateral parenchymal infiltrates consistent with COVID He had significantly elevated d-dimer, ferritin, LDH, LFTs were mildly elevated, and elevated CRP. All of these were improving by the time of discharge except the d-dimer was more elevated. He had no evidence of PE or DVT at the time of discharge-no calf pain or swelling, no chest pain and in fact his hypoxia was i mproving. His appetite was low but was improving by the time of discharge. He had been afebrile for 4 days prior to discharge. -Completed a 5-day course of remdesivir with 200 mg on 12/19; then 100 mg IV daily until 12/24. Given the fact that he is feeling well, the course was not extended - Entered in the [place] trial for convalescent plasma -> Received on 12/21 @ 9pm. - Started dexamethasone 6mg PO daily on 12/22 as well per [facility] trial preliminary results. Plan for 7-day course with end date on December 28. - Encouraged self-proning to patient. He is doing it for >3 hours a day. It does seem to make a 4-5% difference in his pulse ox. On the day of discharge, he was requiring 3 L of oxygen at rest and 6 L of oxygen with exertion, but overall clinically improved and less symptomatic. (2) Hypoxia: Due to Covid. Will require oxygen upon discharge as above Follow-up with PCP for assistance with weaning off of oxygen as an outpatient (3) Diabetes: A1c is 7.2%, meaning he is diabetic. New diagnosis for him. -Was treated with basal and bolus insulin for hyperglycemia while here secondary to corticosteroids Will not send home with insulin, but will start on metformin upon discharge and have follow-up with PCP No reason to check blood sugars at home -Follow-up with PCP (4) Paroxysmal atrial fibrillation: In sinus his entire admission based on clinical exam. CHADS-VASC2 was considered 0 or 1 previously when he had it; therefore, not previously on anticoagulation. Now, I think he's a 2 with diabetes & HTN. - Continue metoprolol succinate as previously prescribed 50mg QAM and 100mg QPM - Discussed anticoagulation with the patient. He is willing to go on anticoagulation. He was started on Eliquis 5 mg p.o. twice daily here and tolerated well-he has no history of bleeding Consider a Holter monitor or implantable recorder after discharge and follow-up with ski top trimmer. If he's never in afib, he may not need anticoagulation forever. -Continue with apixaban upon discharge (5) Mitral regurgitation: Notable history of this. No JVD. Prior history of needing Lasix while in atrial fibrillation but otherwise no history of heart failure. (6) Non-sustained ventricular tachycardia: History of this. None noted here (7) DVT prophylaxis: Known increased risk of clotting with COVID-19. - Now on apixaban for hx of afib. Disposition-stable for discharge to home Total Time Total Time Spent Total Time Spent (In Minutes): Greater than 30 minutes Total Time Includes: Examination of the Patient, Discharge Planning and Medication Reconciliation Discharge Plan Discharge Items Patient Disposition: Home - Home Health Services Reason For Visit: COVID-19,ACUTE HYPOXIC RESPIRATORY FAILURE Discharge Diagnosis: COVID-19, Acute respiratory failure with hypoxia Condition on Discharge: Fair Activity: As commented below Lifting: Gradually increase as tolerated Bathing: No limitations Exercise/Sports: Gradually increase as tolerated Non-emergency contact: Primary Care Provider Call non-emergency contact if: you have any medication questions, your symptoms worsen, you have a fever and your temperature is above 101 Follow-up/Referrals: Kevin Rodriguez Jr, DO [Primary Care Provider] - 01/03/20 9:45 am (Please, follow up with Dr. Rodriguez via a "VIRTUAL VISIT" on FridayJanuary 02 at 9:45 am. This visit will be over the telephone. DR. RODRIGUEZ WILL CALL YOU AT THIS TIME If you have any questions, call the office at [phone]. ) Diet: Carb Consistent or DM2 Addtl Attending Provider Instructions: Please finish 1 more dose of dexamethasone on 12/29/2019. Because you are diagnosed with diabetes, your started on metformin 500 mg by mouth twice daily- this can be started tomorrow morning. Because of your increased risk for stroke now that you have a diagnosis of diabetes and your previous history of atrial fibrillation, you were started on Eliquis which is a blood thinner to prevent stroke. Please follow-up with your primary care physician and your ski top trimmer if you have one for follow-up on your atrial fibrillation. You should use 3 L of oxygen at all times at rest and increase it to 6 L with any exertion. Keep track of your pulse ox and report to your doctor or go to the emergency room if your oxygen levels are remaining below 88%. Coronavirus disease 2019 (COVID-19) is a virus that causes a respiratory illness. It is caused by a coronavirus called 2019 novel coronavirus (2019- nCoV). There are many types of coronavirus. Coronaviruses are a very common cause of bronchitis. They may sometimes cause lung infection(pneumonia). Symptoms can range from mild to severe respiratory illness. These viruses are also foundin some animals. COVID-19 was first found in people in [facility], in late 2018. In 2020, several cases of COVID-19 have been confirmed in the [place] Public health officials are working to find the source. How the virus spreads is not yet fully known. It may be spread through droplets of fluid that a person coughs or sneezes into the air. It may be spread if you touch a surface with virus on it, such as a handle or object, and then touch your mouth. What are the symptoms of COVID-19? Some people have no symptoms or mild symptoms. Symptoms may appear 2 to 14 days after contact with the virus. Symptoms can include: Fever Coughing Trouble breathing What are possible complications from COVID-19? In many cases, this virus can cause infection (pneumonia) in both lungs. In some cases, this can cause . How is COVID-19 diagnosed? Your healthcare provider will ask about your symptoms. He or she will also ask about your recent travel and contact with sick people. Testing for the virus is only done through the CDC. If yourhealthcare provider thinks you may have COVID- 19, he or she will work with your local health department and the CDC on testing. Follow all instructions from your healthcare provider. COVID-19 is diagnosed by: Nasal and throat swab. A cotton-tipped swab is wiped inside your nose or throat. This is done to check for viruses in your nasal mucus. Sputum culture. A small sample of mucus coughed from your lungs (sputum) is collected if you have a cough. It is checked for the virus. How is COVID-19 treated? There is currently no medicine to treat the virus. Treatment is done to help your body while it fights the virus. This is known as supportive care. Supportive care may include: Pain medicine. These include acetaminophen and ibuprofen. They are used to help ease pain and reduce fever. Bed rest. This helps your body fight the illness. For severe illness, you may need to stay in the hospital. Care during severe illness may include: IV (intravenous) fluids.These are given through a vein to help keep your body hydrated. Oxygen. Supplemental oxygen or ventilation with a breathing machine (ventilator) may be given. This is done to keep enough oxygen in your body. Are you at risk for COVID-19? If youve been to a place where people have been sick with this virus, you are at risk for infection. You are at risk if you: Recently traveled to an affected area Had contact with a sick person who recently traveled to this area Had contact with a person who was diagnosed with COVID-19 How can COVID-19 be prevented? There is no vaccine yet. The best prevention is to not have contact with the virus. The CDC advises that people should not travel to areas where there are COVID-19 outbreaks right now for any reason that is not urgent. To help prevent spreading the infection, wash your hands often, or use an alcohol-basedhand sample collector. If you are in an area with COVID-19: Wash your hands often. Or use an alcohol-based hand sample collector often. Only touch your eyes, nose, or mouth with clean hands. Dont have contact with people who are sick. Follow local instructions about being in public. For example, you may be told to not use public transport for a period of time. Stay away from markets that have live or animals. Wash your hands after touching any animals. Don't touch animals that may be sick. Dont share eating or drinking tools with sick people. Dont kiss someone who is sick. Clean surfaces often with disinfectant. If you were in an area with COVID-19 in the last 14 days: Call your healthcare provider. He or she can talk with local health staff to see what action may be needed. Follow all instructions from your provider. Take your temperature every morning and evening for at least 14 days. This is to check for fever. Keep a record of the readings. Keep watch for symptoms of the virus. Tell your provider right away if you have symptoms. If you were in an area with COVID-19 and have a fever or other symptoms: Dont panic. Keep in mind that other illnesses can cause similar symptoms. Stay away from work, school, and public places. Limit physical contact with family members. Don't kiss anyone or share eating or drinking utensils. Clean surfaces you touch with disinfectant. This is to help prevent the virus from spreading. Call your healthcare provider. Explain that you have been exposed to COVID-19 and have symptoms. Do this before going to any hospital. Wait for instructions. Keep in mind that healthcare staff may wear protective equipment such as masks, gowns, gloves, and eye protection. You may be put in a separate room. This is to prevent the possible virus from spreading. Tell the healthcare staff about recent travel. This includes local travel on public transport. Staff may need to find other people you have been in contact with. Follow all instructions the healthcare staff give you. If you have been diagnosed with COVID-19 Follow all instructions from your healthcare provider. Dont leave your home, except to get medical care. Call your healthcare providers office before going. They can prepare and give you instructions. This will help prevent the virus from spreading. Dont go to work, school, or public areas. Dont use public transport or taxis. Stay away from other people in your home. Have them wear face masks around you. Dont share household items or food. Wear a face mask if you can. This includes at home or in a medical facility. Cover your face with a tissue when you cough or sneeze. Throw the tissue away. Wash your hands. Wash your hands often. Caregivers should: Follow all instructions from healthcare staff. Wear a face mask and protective clothing as advised. Wash hands often. Keep track of the sick persons symptoms. Clean surfaces, fabrics, and laundry thoroughly. Keep other people away from the sick person. When to call your healthcare provider Call your healthcare provider: If youve recently traveled and have symptoms If you have been diagnosed with COVID-19 and your symptoms are worse To learn more To find out more about COVID-19, visit the CDC website at www.cdc.gov/coronavirus/2019-ncov/index.html. [employer]. [address] [place] [address], [place] [address]. All rights reserved. This information is not intended as a substitute for professional medical care. Always follow your healthcare professional's instructions. This information has been adapted from [employer] Home Isolation COVID-19 Instructions The following information about Home Isolation is from the CDC Website: https://www.cdc.gov/coronavirus/2019-ncov/hcp/ouhzupmv-qlxmfbv-odcbnl.html Stay home except to get medical care People who are mildly ill with COVID-19 are able to isolate at home during their illness. You should restrict activities outside your home, except for getting medical care. Do not go to work, school, or public areas. Avoid using public transportation, ride-sharing, or taxis. Separate yourself from other people and animals in your home People: As much as possible, you should stay in a specific room and away from other people in your home. Also, you should use a separate bathroom, if a vailable. Animals: You should restrict contact with pets and other animals while you are sick with COVID-19, just like you would around other people. Although there have not been reports of pets or other animals becoming sick with COVID-19, it is still recommended that people sick with COVID-19 limit contact with animals until more information is known about the virus. When possible, have another member of your household care for your animals while you are sick. If you are sick with COVID-19, avoid contact with your pet, including petting, snuggling, being kissed or licked, and sharing food. If you must care for your pet or be around animals while you are sick, wash your hands before and after you interact with pets and wear a face mask. Call ahead before visiting your doctor If you have a medical appointment, call the healthcare provider and tell them that you have or may have COVID-19. This will help the healthcare providers office take steps to keep other people from getting infected or exposed. Wear a face mask You should wear a face mask when you are around other people (e.g., sharing a room or vehicle) or pets and before you enter a healthcare providers office. If you are not able to wear a face mask (for example, because it causes trouble breathing), then people who live with you should not stay in the same room with you, or they should wear a face mask if they enter your room. Cover your coughs and sneezes Cover your mouth and nose with a tissue when you cough or sneeze. Throw used tissues in a lined trash can. Immediately wash your hands with soap and water for at least 20 seconds or, if soap and water are not available, clean your hands with an alcohol-based hand sample collector that contains at least 60% alcohol. Clean your hands often Wash your hands often with soap and water for at least 20 seconds, especially after blowing your nose, coughing, or sneezing; going to the bathroom; and before eating or preparing food. If soap and water are not readily available, use an alcohol-based hand sample collector with at least 60% alcohol, covering all surfaces of your hands and rubbing them together until they feel dry. Soap and water are the best option if hands are visibly dirty. Avoid touching your eyes, nose, and mouth with unwashed hands. Avoid sharing personal household items You should not share dishes, drinking glasses, cups, eating utensils, towels, or bedding with other people or pets in your home. After using these items, they should be washed thoroughly with soap and water. Clean all high-touch surfaces everyday High touch surfaces include counters, tabletops, doorknobs, bathroom fixtures, toilets, phones, keyboards, tablets, and bedside tables. Also, clean any surfaces that may have blood, stool, or body fluids on them. Use a household cleaning spray or wipe, according to the label instructions. Labels contain instructions for safe and effective use of the cleaning product including precautions you should take when applying the product, such as wearing gloves and making sure you have good ventilation during use of the product. Monitor your symptoms Seek prompt medical attention if your illness is worsening (e.g., difficulty br eathing).Beforeseeking care, call your healthcare provider and tell them that you have, or are being evaluated for, COVID-19. Put on a face mask before you enter the facility. These steps will help the healthcare providers office to keep other people in the office or waiting room from getting infected or exposed. Ask your healthcare provider to call the local or state health department. Persons who are placed under active monitoring or facilitated self- monitoring should follow instructions provided by their local health department or occupational health professionals, as appropriate. When working with your local health department check their available hours. If you have a medical emergency and need to call 911, notify the dispatch personnel that you have, or are being evaluated for COVID-19. If possible, put on a face mask before emergency medical services arrive. Discontinuing home isolation Patients with confirmed COVID-19 should remain under home isolation precautions until the risk of secondary transmission to others is thought to be low. The decision to discontinue home isolation precautions should be made on a qyty-ke-xakz basis, in consultation with healthcare providers and state and local health departments. Pending Studies at Discharge: No Stand-Alone Forms: [facility] Medications and DC Order Prescriptions: New Eliquis 5 mg Tablet 5 mg PO BID Qty: 60 RF: 0 fluticasone propionate 50 mcg/actuation Douglas,Suspension 2 spray NA DAILY Qty: 18.2 RF: 0 sodium chloride [Saline Mist] 0.65 % Aerosol,Douglas 2 spray NA Q4H PRN (Reason: nasal congestion) Qty: 60 RF: 0 dexamethasone 4 mg Tablet 6 mg PO DAILY 1 Days Qty: 1.5 RF: 0 metformin 500 mg tablet 500 mg PO BID Qty: 60 RF: 0 Continued atorvastatin 20 mg tablet 20 mg PO HS RF: 0 metoprolol succinate 100 mg tablet extended release 24 hr 100 mg PO HS RF: 0 metoprolol succinate 100 mg tablet extended release 24 hr 50 mg PO QAM RF: 0 Discontinued naproxen 500 mg tablet 500 mg PO DAILY RF: 0 Discharge Orders: Discharge Order (Routine); Ordered 12/28/19 Ordered By: Charla Freitas/Other Patient Handouts: Managing Type 2 Diabetes, Oral Medicines for Type 2 Diabetes, Using Oxygen Safely, Traveling with Oxygen, Using an Oxygen Cortes k at Home, Diabetes: Meal Planning, Apixaban oral tablets, A1C Admission Data Admit Date/Time: 12/21/19 14:53 Attending Provider: Charla Frey Admit Provider: Osmany Tidwell Primary Care Provider: Kevin Rodriguez Jr Other Providers: Jose A Mckeon ; Osmany Tidwell Other Interventions: Discharge Summary Assessment (RN) Last Done: 12/28/19 14:33 Coding Level of Care Code D/C Day Management >30 mins Diagnoses COVID-19 virus infection U07.1 Hypoxia R09.02 Diabetes E11.9 Paroxysmal atrial fibrillation I48.0 Mitral regurgitation I34.0 Non-sustained ventricular tachycardia I47.2 DVT prophylaxis Z29.9
[2019-12-28] MEDS ORDERED: APIXABAN 5 MG TABLET PO SCH ×2 (21:00)
== END 2019-12-28 17:05 | disposition home or self-care (01) | DRG 177 ==
LOC: ED 11:53 → SUATTDRO 14:53 → 2E 14:53

== ENCOUNTER 2025-02-17 16:29 | Inpatient (IN) ==
[2025-02-17] MEDS: SODIUM CHLORIDE 0.9% 1,000 ML IV STA (16:57)
[2025-02-17 17:04] LABS: Hematocrit (blood only) 35.2 % (42.0-52.0); Hemoglobin 12.1 g/dl (14.0-18.0); Immature Granulocytes # (auto) 0.17 K/uL (0.01-0.20); Immature Granulocytes % (auto) 1.1 %; Mean Corpuscular Hemoglobin 31.5 pg (25.0-34.0); Mean Corpuscular Volume 91.7 fL (80.0-100.0); Platelet Count 302 K/uL (130-400); RDW Standard Deviation 43.8 fL (36.4-46.3); Red Blood Count 3.84 M/uL (4.70-6.10); White Blood Count 15.08 K/ul (4.8-10.8)
--- NOTE | 2025-02-17 17:06 | Emergency Department Note ---
Impression & Plan Syncope, Acute pericardial effusion, Atrial fibrillation with rapid ventricular response, NSVT (nonsustained ventricular tachycardia), Non-ST elevation SC (NSTEMI), Acute anemia ED Provider Note NAME: MICHAEL BROWN AGE: 64 SEX: M : 1960 ARRIVES VIA: Ambulance INFORMANT: Patient, EMS, ED PROVIDER(S): Jake Tena DO CHIEF COMPLAINT: syncope HPI: This is a 64-year-old male with the PMHx of severe MR s/p MVR, atrial clip and MAZE procedure at [facility] on 02/08 discharged on 02/14 with treatment for pericarditis and pericardial effusion, pAfib and DM2 presenting to [facility] for further evaluation of syncope. Patient is accompanied by EMS who provide additional history. EMS notes the patient has remained hemodynamically stable and route. They report a syncopal episode with loss of consciousness that lasted approximately 1 minute. Patient states he felt very lightheaded prior to this. Patient states he was diaphoretic. He did not have pain associated with the syncopal episode. provides further history. She reports that he lost consciousness for at least a minute. He states that his eyes rolled in the back of his head. Patient states he feels weak but otherwise has been feeling good. They were recently discharged from the [facility] on Friday They deny fever or chills. No cough or congestion. Denies chest pain or palpitations. No shortness of breath. They deny abdominal pain, nausea and vomiting. No urinary complaints. No recent changes in bowel movements. Patient denies recent changes in medications or OTC supplements. Patient offers no other complaints, today. ADDITIONAL HISTORY OBTAINED: Per HPI Chronic Medical/Social Conditions Affecting Care: Per HPI PAST MEDICAL HISTORY: See Below PAST SURGICAL HISTORY: See Below FAMILY HISTORY: See Below SOCIAL HISTORY: See Below HOME MEDICATIONS: See Below ALLERGIES: See Below VITALS: See Below PHYSICAL EXAMINATION: GENERAL: Sitting up in bed, alert, well appearing, well nourished, no distress, non-toxic EYE EXAM: normal conjunctiva. PERRL and EOM's grossly intact. OROPHARYNX: no exudate, no erythema, lips, buccal mucosa, and tongue normal and mucous membranes are moist NECK: supple, no nuchal rigidity, no adenopathy, non-tender LUNGS: Clear to auscultation. Normal chest wall mechanics HEART: no murmurs, tachycardic rate, irregular rhythm, healing sternotomy without drainage, bleeding or swelling. No pain over the site. 2+ distal pulses with warm extremities. No evidence of hypoperfusion or hypervolemia. ABDOMEN: abdomen soft, non-tender, no masses, no rebound or guarding. BACK: Back is symmetrical on inspection and there is no deformity, no midline tenderness, no CVA tenderness. SKIN: no rashes and no bruising UPPER EXTREMITIES: upper extremities are grossly normal. LOWER EXTREMITIES: No pitting edema. NEURO EXAM: Normal sensorium, GCS 15, normal speech, no gross weakness of arms, no gross weakness of legs. MEDICAL DECISION MAKING: Differential diagnoses includes but not limited to ACS, dysrhythmia, pericardial effusion, pericardial tamponade, PE, hemothorax, PTX, PNA, atelectasis, CVA, electrolyte derangements, dehydration, vasovagal episode In summary, this is a 64 year old male who presented with syncope. Differential as above. Nursing notes and pertinent past medical records reviewed. Vital signs reviewed and the patient is tachycardic but otherwise afebrile and hemodynamically stable. Patient does not appear to be in a shocklike state. Has a known history of atrial fibrillation. Does appear to be in atrial fibrillation with RVR. He is having episodes of nonsustained VT. Patient likely is experiencing his symptoms in the setting of recent open heart surgery. Reviewed documentation with the patient that he has at the bedside. Appears the patient had a mitral valve replacement, atrial clip and MAZE procedure. He does have a known postoperative pericardial effusion and he is being treated for pericarditis. History and presentation revealed as above. Physical examination revealed as above. As a result of my initial evaluation, we will plan to provide IV fluid resuscitation and perform immediate bedside ultrasound. Bedside ultrasound independently interpreted by me reveals hyperdynamic EF. There is a large pericardial effusion present. IVC is slightly variable with respirations. I see no B-lines. I am concerned that the patient's pericardial effusion could have potentially enlarged causing his syncopal episode today. Patient will be discussed with cardiology. Plans for labs as well as CT PE study for further characterization of the pericardial effusion as well as the possibility of pulmonary embolism in the close postoperative period. Diagnostics interpreted by me include EKG and cardiac monitoring as listed below: -Cardiac Monitoring: An order was placed for continuous cardiac monitoring. The monitor shows a rate of 70-140s with irregular rhythm. Numerous episodes of ectopy. Runs of VT as long as 10-12 beats. Most nsVT is 3-4 beats but frequent. -ECG: EKG independently interpreted by me reveals atrial fibrillation with RVR at [address] segments changes to suggest STEMI. Intervals are within normal limits. There are frequent PVCs and nonsustained V. tach on this rhythm. Seems to be in runs of 3 to 6 complexes. Patient completed laboratory studies and imaging. Labs independently interpreted by me show a mild leukocytosis that could be reactive to the patient's recent open heart surgery. He is mildly anemic. Platelets are normal. Normal electrolytes besides hyperglycemia. AST is minimally elevated. Lipase is minimally elevated. I do believe that most of the results as above are likely reactive to the patient's recent cardiac surgery. His NSTEMI is expected in the postoperative period. No heparin infusion is necessary at this time. Heparin would increased risks for bleeding or potentially worsen pericardial effusion. Given the patient's recent open heart surgery with mitral valve replacement and clip, I discussed with [facility] cardiology. I am concerned that the patient could have a moderate-sized pericardial effusion on bedside ultrasound. I did recommend that we get a stat echocardiogram. [facility] cardiology stated that we are unable to perform this at this time. They do not feel that he needs this. They do recommend admission for observation. They will be able to obtain the study tomorrow. Chest x-ray independently interpreted by me reveals minimal at electrical changes. There is evidence of a sternotomy. No free air or pneumothorax. Does have cardiomegaly present. Telemetry showing frequent runs of nonsustained V. tach. Longest run is approximately 10-12 beats. Does have frequent PVCs. Patient reports this is a known history for him. Suggest this is likely irritation from his recent cardiac surgery as well. Will continue to hold on antiarrhythmics at this time. He is on home amiodarone. He took his 2 doses this morning as well as this afternoon. He is due for third dose of amiodarone this evening. We could potentially load him with amiodarone if his burden becomes worse. Patient remains hemodynamically stable besides mild tachycardia. There is no physiologic evidence of pericardial tamponade at this time. ED attendance secretary to work on obtaining records from [facility]. CT PE independently interpreted does not reveal a saddle PE but large posterior pericardial effusion noted. The patient requires admission for high risk syncope in the setting of atrial fibrillation with RVR, nsVT and large pericardial effusion. High risk [place] Syncope Risk Score. Again discussed with Dr. Rey at 1830. He is agreeable to the see the patient in the AM. We discussed that if the patient should decompensate in terms of hemodynamics or further syncopal episodes, he made need emergent pericardiocentesis and laborer chemical processing would be activated. Plan for formal evaluation and stat TTE in the AM. Ultimately, the decision was made to admit the patient for large pericardial effusion c/b afib with RVR and significant ectopy leading to high risk syncope prior to arrival. I discussed the case with the hospitalist service via telephone/Tiger[employer] and they are agreeable to admit the patient to their services. Based on the above, including the patient's age, coexisting illnesses, labs, imaging, and exam findings the decision to treat as an inpatient. I discussed the patient with the hospitalist team who recommended admission to their services. They received the medications, treatments, interventions indicated above and their condition remained guarded. I discussed my findings with the patient and their family and they understand and agree with the treatment plan. All patient / family questions were answered to their satisfaction. Consults/Care Managements Discussions: Per MDM ER treatment provided: See above Procedures:none Critical Care: None The chart was completed utilizing [employer] Speech voice recognition software. Grammatical errors, random word insertions, pronoun errors, and incomplete sentences are an occasional consequence of this system due to software limitations, ambient noise, and hardware issues. Any formal questions or concerns about the content, text, or information contained within the body of this dictation should be directly addressed to the physician for clarification. Past Med/Surg History Problem List (Updated 02/18/25 @ 21:24 by Jake Tena DO) Acute anemia (Acute) Non-ST elevation SC (NSTEMI) (Acute) NSVT (nonsustained ventricular tachycardia) (Acute) Atrial fibrillation with rapid ventricular response (Acute) Acute pericardial effusion (Acute) Syncope (Acute) Syncope Mitral valve disorder Anticoagulation therapy not indicated Near syncope Pericardial effusion Severe mitral regurgitation Ventricular tachycardia Encounter for pre-operative examination Diabetes Mitral regurgitation Echo 12/2021: Moderate MVP, Moderate-severe MR Paroxysmal atrial fibrillation Medical History COVID-19 virus infection (11/2019) Diabetes mellitus, type 2 "hx- has had 50lb weight loss" RVOT ventricular tachycardia Hypertrophy of nasal turbinates Frequent PVCs Deviated nasal septum Chronic cerebral ischemia Ventricular ectopic beats Frequent Mitral valve prolapse Echo 12/2021: Moderate MVP, Moderate-severe MR Hypertension Hyperlipidemia COVID-19 Late November 2019- hospitalized, required supplemental oxygen (only during hospitalization), blood transfusion ([facility] Protocol per patient) Non-sustained ventricular tachycardia Remote hx Surgical History History of colonoscopy Family history of reaction to anesthesia Mother- increased confusion with anesthesia History of transesophageal echocardiography ([facility]) History of cardioversion Multiple Hx of foot surgery left Hx of arthroscopic knee surgery left Hx of lithotripsy Multiple Family History Other No significant family history Social History Smoking Status: Former smoker Tobacco Type: Cigarettes Second Hand Exposure: Yes (hx as child); Do You Dip or Chew Tobacco: No (as a teen only; advised); Hx Alcohol Use: Yes Alcohol type: beer Hx Substance Use: No Preferred Language: Qatari Communication Ability: Effective Pony Roll Finisher Required: No Beliefs That Will Affect Care: None Current Living Situation: Spouse Feels Safe at Home: Yes Safety Concerns: Feels Safe At This Time Assistive Devices: None Allergies Allergies Allergy/AdvReac Type Severity Reaction Status Date / Time No Known Allergies Allergy Verified 12/14/24 13:55 Home Meds Home Medications Medication Instructions Recorded Confirmed Medical Marijuana 1 gummy PO UD PRN Sleep 09/01/23 12/14/24 Aspir-81 81 mg PO DAILY 02/17/25 02/17/25 acetaminophen 325 mg tablet 325 mg PO QID PRN pain or fever 02/17/25 02/17/25 amiodarone 200 mg tablet 200 mg PO TID 02/17/25 02/17/25 colchicine 0.6 mg tablet mg 02/17/25 colchicine 0.6 mg tablet mg 02/17/25 furosemide 20 mg tablet 20 mg PO DAILY 02/17/25 02/17/25 ibuprofen 600 mg tablet 600 mg PO TID 02/17/25 02/17/25 methocarbamol 750 mg tablet mg 02/17/25 metoprolol tartrate 25 mg tablet 25 mg PO TID 02/17/25 02/17/25 potassium chloride 20 mEq 20 meq PO DAILY 02/17/25 02/17/25 tablet,extended release(part/cryst) (Klor-Con M) rosuvastatin 40 mg tablet 20 mg PO DAILY 02/17/25 02/17/25 Previous Rx's Medication Instructions Recorded flecainide 150 mg tablet 150 mg PO Q12H #180 tabs 01/29/24 metoprolol succinate 100 mg 100 mg PO BID #180 tabs 08/23/24 tablet,extended release 24 hr pantoprazole 40 mg tablet,delayed 40 mg PO DAILY #30 tabs 10/04/24 release (Protonix) rosuvastatin 40 mg tablet 20 mg (1/2 x 40 mg) PO HS #90 tabs 12/14/24 Results & Data (ED) Vital Signs Vital Signs - 24 hr 02/17/25 16:35 02/17/25 16:35 02/17/25 16:42 Temperature 36.8 C 36.8 C Temperature Source Oral Oral Pulse Rate 75 113 H Pulse Rate [Apical] 75 Pulse Rate from SpO2 Sensor Respiratory Rate 17 17 19 Respiratory Effort / Characteristics Non-Labored Spontaneous Non-Labored Spontaneous Respiratory Depth Normal Normal Blood Pressure 111/76 Blood Pressure [Left Arm] 111/76 Blood Pressure Mean 87 Blood Pressure Mean [Left Arm] 87 Blood Pressure Position Sitting Blood Pressure Position [Left Arm] Sitting Pulse Oximetry 97 97 95 Oxygen Delivery Method Room Air Room Air Room Air Sepsis Recent Fever Within 48 Hours No Sepsis New/Unexplained Change in Mental Status N/A Sepsis Action Taken by Nursing No Action Required 02/17/25 17:00 02/17/25 17:30 02/17/25 17:32 Temperature Temperature Source Pulse Rate 127 H 130 H 130 H Pulse Rate [Apical] Pulse Rate from SpO2 Sensor 106 H Respiratory Rate 23 18 Respiratory Effort / Characteristics Respiratory Depth Blood Pressure 111/83 Blood Pressure [Left Arm] Blood Pressure Mean 92 Blood Pressure Mean [Left Arm] Blood Pressure Position Blood Pressure Position [Left Arm] Pulse Oximetry 96 96 Oxygen Delivery Method Sepsis Recent Fever Within 48 Hours Sepsis New/Unexplained Change in Mental Status Sepsis Action Taken by Nursing 02/17/25 17:32 02/17/25 18:03 02/17/25 18:30 Temperature Temperature Source Pulse Rate 117 H 117 H 126 H Pulse Rate [Apical] Pulse Rate from SpO2 Sensor 126 H 123 H Respiratory Rate 24 17 18 Respiratory Effort / Characteristics Respiratory Depth Blood Pressure 111/83 109/82 125/70 Blood Pressure [Left Arm] Blood Pressure Mean 93 91 88 Blood Pressure Mean [Left Arm] Blood Pressure Position Blood Pressure Position [Left Arm] Pulse Oximetry 97 98 94 Oxygen Delivery Method Sepsis Recent Fever Within 48 Hours Sepsis New/Unexplained Change in Mental Status Sepsis Action Taken by Nursing 02/17/25 19:00 02/17/25 19:30 02/17/25 19:40 Temperature Temperature Source Pulse Rate 130 H 133 H Pulse Rate [Apical] Pulse Rate from SpO2 Sensor 104 H 127 H Respiratory Rate 16 19 Respiratory Effort / Characteristics Respiratory Depth Blood Pressure 111/70 101/76 104/73 Blood Pressure [Left Arm] Blood Pressure Mean 83 84 76 Blood Pressure Mean [Left Arm] Blood Pressure Position Blood Pressure Position [Left Arm] Pulse Oximetry 97 97 Oxygen Delivery Method Sepsis Recent Fever Within 48 Hours Sepsis New/Unexplained Change in Mental Status Sepsis Action Taken by Nursing 02/17/25 20:00 Temperature Temperature Source Pulse Rate 128 H Pulse Rate [Apical] Pulse Rate from SpO2 Sensor Respiratory Rate 23 Respiratory Effort / Characteristics Respiratory Depth Blood Pressure 117/82 Blood Pressure [Left Arm] Blood Pressure Mean 93 Blood Pressure Mean [Left Arm] Blood Pressure Position Blood Pressure Position [Left Arm] Pulse Oximetry 98 Oxygen Delivery Method Sepsis Recent Fever Within 48 Hours Sepsis New/Unexplained Change in Mental Status Sepsis Action Taken by Nursing Laboratory Data 02/18/25 05:30 02/18/25 05:30 Lab Results 02/17/25 02/17/25 Range/Units 16:45 19:27 WBC 15.08 H (4.8-10.8) K/ul RBC 3.84 L (4.70-6.10) M/uL Hgb 12.1 L (14.0-18.0) g/dl Hct 35.2 L (42.0-52.0) % MCV 91.7 (80.0-100.0) fL MCH 31.5 (25.0-34.0) pg MCHC 34.4 (32.0-36.0) g/dL RDW Std Deviation 43.8 (36.4-46.3) fL RDW Coeff of Alireza 13.2 (11.5-14.5) % Plt Count 302 (130-400) K/uL MPV 9.3 L (9.4-12.4) fL Immature Gran % (Auto) 1.1 % Neut % (Auto) 75.3 % Lymph % (Auto) 13.3 % [place] % (Auto) 8.4 % Eos % (Auto) 1.4 % Baso % (Auto) 0.5 % Neut # (Auto) 11.37 H (1.40-6.50) K/uL Lymph # (Auto) 2.00 (1.20-3.40) K/uL [place] # (Auto) 1.26 H (0.11-0.59) K/uL Eos # (Auto) 0.21 (0.00-0.50) K/uL Baso # (Auto) 0.07 (0.00-0.20) K/uL Immature Gran # (Auto) 0.17 (0.01-0.20) K/uL PT 11.2 (9.0-12.0) Seconds INR 1.0 (0.9-1.1) APTT 24 (21-31) Seconds PTT Ratio 0.9 Sodium 139 (136-145) mmol/L Potassium 4.4 (3.5-5.1) mmol/L Chloride 105 (98-107) mmol/L Carbon Dioxide 26 (21-32) mmol/L Anion Gap 8 (3-11) BUN 18 (6-23) mg/dl Creatinine 0.98 (0.6-1.4) mg/dl Est Cr Clr Drug Dosing 80.1 ml/min eGFR 85.57 BUN/Creatinine Ratio 18.4 (10-20) Glucose 149 H (70-99(Fasting)) mg/dl Calcium 9.5 (8.6-10.3) mg/dl Phosphorus 4.1 (2.5-4.9) mg/dl Magnesium 2.3 (1.7-2.4) mg/dl Total Bilirubin 0.6 (0.2-1.0) mg/dl AST 42 H (13-39) U/L ALT 46 (7-52) U/L Alkaline Phosphatase 71 (34-104) U/L Troponin I High Sens 146.8 H* 138.9 H* (0-20) pg/ml B-Natriuretic Peptide 442 H (0-100) pg/ml Total Protein 7.0 (6.0-8.3) gm/dl Albumin 4.2 (3.4-5.0) gm/dl Globulin 2.8 (2.5-4.0) gm/dl Albumin/Globulin Ratio 1.5 (0.9-2) Lipase 104 H (11-82) U/L Administered Medications Acetaminophen (Acetaminophen 325 Mg Tab) 650 mg PO Q4H PRN PRN Reason: Pain or Fever Stop: 03/19/25 21:52 Last Admin: 02/18/25 18:33 Dose: 650 mg Documented By: Admin: 02/18/25 13:03 Dose: 650 mg Documented By: Admin: 02/18/25 08:18 Dose: 650 mg Documented By: Admin: 02/18/25 03:57 Dose: 650 mg Documented By: hans Aspirin (Aspirin 81 Mg Ectab) 81 mg PO DAILY [facility] Stop: 03/20/25 08:59 Last Admin: 02/18/25 08:38 Dose: 81 mg Documented By: DIAMOND Docusate Sodium (Docusate Sodium 100 Mg Cap) 100 mg PO BID PRN PRN Reason: Constipation Stop: 03/19/25 21:52 Last Admin: 02/18/25 20:26 Dose: 100 mg Documented By: TOMAS Amiodarone HCl/Dextrose (Nexterone / D5w) 360 mg in 200 mls @ 33.333 mls/hr IV ONE ONE Stop: 02/19/25 00:29 Last Admin: 02/18/25 18:42 Dose: 1 mg/min, 33.3 mls/hr Documented By: DIAMOND Co-signed By: NASEEM Lorazepam (Lorazepam 1 Mg Tab) 1 mg SL Q8H PRN PRN Reason: sleep or anxiety/panic attack Stop: 03/20/25 18:54 Last Admin: 02/18/25 20:26 Dose: 1 mg Documented By: TOMAS Metoprolol Tartrate (Metoprolol Tartrate 50 Mg Tab) 50 mg PO Q6 [facility] Stop: 03/20/25 17:59 Last Admin: 02/18/25 17:12 Dose: 50 mg Documented By: DIAMOND Rosuvastatin Calcium (Rosuvastatin Calcium 20 Mg Tab) 20 mg PO DAILY EVIE Stop: 03/20/25 08:59 Last Admin: 02/18/25 08:17 Dose: 20 mg Documented By: DIAMOND Discontinued Medications Acetaminophen (Acetaminophen 325 Mg Tab) 325 mg PO NOW STA Stop: 02/17/25 20:21 Last Admin: 02/17/25 21:00 Dose: 325 mg Documented By: RAJINDER Amiodarone HCl (Amiodarone 200 Mg Tab) 200 mg PO NOW ONE Stop: 02/17/25 20:21 Last Admin: 02/17/25 21:00 Dose: 200 mg Documented By: RAJINDER Amiodarone HCl (Amiodarone 200 Mg Tab) 200 mg PO TID EVIE Stop: 03/20/25 08:59 Last Admin: 02/18/25 13:50 Dose: 200 mg Documented By: Admin: 02/18/25 08:17 Dose: 200 mg Documented By: DIAMOND Ascorbic Acid (Ascorbic Acid 500 Mg Tab) 500 mg PO NOW STA Stop: 02/17/25 20:21 Last Admin: 02/17/25 21:10 Dose: 500 mg Documented By: RAJINDER Sodium Chloride (Nss) 1,000 mls @ 999 mls/hr IV .Q1H1M STA Stop: 02/17/25 17:42 Last Infusion: 02/17/25 18:00 Dose: Infused Documented By: violeta Admin: 02/17/25 16:57 Dose: 999 mls/hr Documented By: violeta Parenteral Electrolytes (Plasma-Lyte A Ph 7.4) 500 mls @ 999 mls/hr IV .Q31M ONE Stop: 02/17/25 19:33 Last Infusion: 02/17/25 20:15 Dose: Infused Documented By: Admin: 02/17/25 19:39 Dose: 999 mls/hr Documented By: RAJINDER Parenteral Electrolytes (Plasma-Lyte A Ph 7.4) 500 mls @ 80 mls/hr IV .Q6H15M EVIE Stop: 02/18/25 04:07 Last Infusion: 02/18/25 05:18 Dose: Infused Documented By: hans Admin: 02/17/25 23:14 Dose: 80 mls/hr Documented By: FAITH Amiodarone HCl/Dextrose (Nexterone / D5w) 150 mg in 100 mls @ 600 mls/hr IV NOW STA Stop: 02/18/25 18:28 Last Infusion: 02/18/25 18:43 Dose: Infused Documented By: DIAMOND Co-signed By: NASEEM Admin: 02/18/25 18:31 Dose: 600 mls/hr Documented By: DIAMOND Co-signed By: NASEEM Ibuprofen (Ibuprofen 600 Mg Tab) 600 mg PO NOW STA Stop: 02/17/25 20:21 Last Admin: 02/17/25 21:00 Dose: 600 mg Documented By: RAJINDER Ioversol (Optiray 320 125ml) 119 ml IV ONCE ONE Stop: 02/17/25 17:48 Last Admin: 02/17/25 17:47 Dose: 119 ml Documented By: SOLO Metoprolol Tartrate (Metoprolol Tartrate 25 Mg Tab) 25 mg PO NOW STA Stop: 02/17/25 20:21 Last Admin: 02/17/25 21:04 Dose: Not Given Documented By: RAJINDER Metoprolol Tartrate (Metoprolol Tartrate 25 Mg Tab) 25 mg PO TID EVIE Stop: 03/20/25 08:59 Last Admin: 02/18/25 08:17 Dose: 25 mg Documented By: DIAMOND Metoprolol Tartrate (Metoprolol Tartrate 25 Mg Tab) 25 mg PO Q6 [facility] Stop: 03/20/25 11:59 Last Admin: 02/18/25 13:04 Dose: 25 mg Documented By: NASEEM Imaging Data Radiologist's Impression: Chest CTA 02/17/25 16:42 CT pulmonary angiogram with IV contrast History: Chest pain COMPARISON: None TECHNIQUE: CT angiography of the chest was performed without IV contrast followed by IV contrast, including 3D post processing CTA image reconstruction. Dose reduction techniques were achieved by using automatic exposure control and/or adjustment of mA and/or kV according to patient size and/or use of iterative reconstruction technique. FINDINGS: Diagnostic quality: Adequate There is no evidence for pulmonary embolism. The heart is enlarged. Left atrial appendage clip. Surgical clips anterior to the ascending thoracic aorta. There is a large pericardial effusion. There are no abnormally enlarged hilar or mediastinal lymph nodes. The central tracheobronchial tree is clear. The lungs are clear. Trace left pleural effusion. Limited visualized upper abdomen. No destructive osseous changes are seen. Median sternotomy changes. Small focus of air subcutaneously in the upper chest overlying the sternum. IMPRESSION: No evidence for pulmonary embolism. Cardiomegaly. Large pericardial effusion. Trace left pleural effusion. Electronically signed by Jerel Kilgore 02-17-2025 6:20 PM Discharge Plan Visit Data Chief Complaint: Cardiac Assessment ED Provider: Jake Tena Discharge Problem: Syncope, Acute pericardial effusion, Atrial fibrillation with rapid ventricular response, NSVT (nonsustained ventricular tachycardia), Non-ST elevation SC (NSTEMI), Acute anemia Patient Disposition: Admitted As Inpatient Condition: Serious Discharge Instructions Interventions: ED Discharge Assessment Last Done: 02/17/25 21:13
[2025-02-17 17:22] LABS: Alanine Aminotransferase 46.0 U/L (7-52); Albumin Globulin Ratio 1.5 (0.9-2); Alkaline Phosphatase 71.0 U/L (34-104); Anion Gap 8.0 (3-11); Bilirubin,Total 0.6 mg/dl (0.2-1.0); Blood Urea Nitrogen 18.0 mg/dl (6-23); Calcium 9.5 mg/dl (8.6-10.3); Carbon Dioxide 26.0 mmol/L (21-32); Chloride 105.0 mmol/L (98-107); Creatinine Clr Calc Pharmacy 80.1 ml/min; Globulin 2.8 gm/dl (2.5-4.0); Glucose 149.0 mg/dl (70-99(Fasting)); Lipase 104.0 U/L (11-82); Magnesium 2.3 mg/dl (1.7-2.4); Potassium 4.4 mmol/L (3.5-5.1); Sodium 139.0 mmol/L (136-145); Total Protein 7.0 gm/dl (6.0-8.3)
[2025-02-17 17:32] LABS: INR 1.0 (0.9-1.1); Partial Thromboplastin Time 24 Seconds (21-31); Prothrombin Time 11.2 Seconds (9.0-12.0)
--- NOTE | 2025-02-17 17:36 | XRay Report ---
Clinical History: Chest pain Technique: A frontal view of the chest was obtained Comparison is made to the prior examination dated 10/04/2024 Findings: There are no confluent pulmonary infiltrates. The heart is enlarged. New sternal wires are present. No pleural effusion or pneumothorax is seen. There is mild left lung base atelectasis. There is an old healed fracture of the right sixth rib. No foreign body is seen Impression: 1. Mild left lung base atelectasis 2. Cardiomegaly Electronically signed by Adams Mandel 02-17-2025 5:35 PM
[2025-02-17] MEDS: OPTIRAY 320 125ml IV ONE (17:47)
--- NOTE | 2025-02-17 18:20 | CT Scan Report ---
CT pulmonary angiogram with IV contrast History: Chest pain COMPARISON: None TECHNIQUE: CT angiography of the chest was performed without IV contrast followed by IV contrast, including 3D post processing CTA image reconstruction. Dose reduction techniques were achieved by using automatic exposure control and/or adjustment of mA and/or kV according to patient size and/or use of iterative reconstruction technique. FINDINGS: Diagnostic quality: Adequate There is no evidence for pulmonary embolism. The heart is enlarged. Left atrial appendage clip. Surgical clips anterior to the ascending thoracic aorta. There is a large pericardial effusion. There are no abnormally enlarged hilar or mediastinal lymph nodes. The central tracheobronchial tree is clear. The lungs are clear. Trace left pleural effusion. Limited visualized upper abdomen. No destructive osseous changes are seen. Median sternotomy changes. Small focus of air subcutaneously in the upper chest overlying the sternum. IMPRESSION: No evidence for pulmonary embolism. Cardiomegaly. Large pericardial effusion. Trace left pleural effusion. Electronically signed by Jerel Kilgore 02-17-2025 6:20 PM
[2025-02-17] MEDS: PLASMA-LYTE A 500 ML IV ONE (19:39)
--- NOTE | 2025-02-17 20:29 | History & Physical Report ---
Date of Service February 17, 2025 Assessment & Plan (1) Pericardial effusion: (2) Mitral valve prolapse: (3) Paroxysmal atrial fibrillation: (4) Non-sustained ventricular tachycardia: (5) Diabetes mellitus, type 2: (6) Hypertension: (7) Hyperlipidemia: Plan 64-year-old male with history of mitral valve disease status post mitral valve repair, atrial clip and ablation performed at [facility] on 02/08/2025. Patient presents today with several episodes of dizziness. Found to have a large pericardial effusion. Patient has been in atrial fibrillation with RVR with frequent ectopy, nonsustained V. tach. Blood pressure has been stable #Pericardial effusionpostoperative. Blood pressure has been acceptable. Patient has had elevated heart rate, atrial fibrillation with RVR. Admit to PCU Check 2D echo Allow for tachycardia, may be compensatory at this point Will hold ibuprofen and Lasix for now Cardiology consultation appreciated #Mitral valve prolapsestatus post mitral valve repair performed at [facility] Requesting records #Paroxysmal atrial fibrillationpatient has been in atrial fibrillation since his arrival here. Continue amiodarone 200 mg p.o. 3 times daily Continue metoprolol 25 mg p.o. 3 times daily with holding parameters #Nonsustained V. tachknown. Possibly postoperative. Electrolytes are within normal limits. Patient denies chest pain Continue to monitor electrolytes Gentle IV fluids Cardiology consultation appreciated #Diabetesdiet controlled. #Hypertensionblood pressure = 10 Continue metoprolol for now with holding parameters #Hyperlipidemia Continue Crestor 20 mg p.o. daily History of Present Illness Chief Complaint: pericardial effusion Primary Care Provider: MD Ariel Galaviz Mina He is a 64-year-old male with history of hypertension, hyperlipidemia, diabetes, mitral valve disease status post mitral valve repair performed at the [facility] on 02/08/2025. Patient had mitral valve repair, atrial clip and ablation for atrial fibrillation performed while at the [facility]. He reports that his surgery went well with no complications identified. He did have to be cardioverted out of (presumably) atrial fibrillation x 1 postoperatively. He was discharged home on 02/15. He has an appointment scheduled for 04/06/2025 to follow-up with cardiology. Yesterday (02/16) patient became slightly lightheaded. He was sitting on the couch when the sensation came on. He sat back and relaxed and lay down for little bit and the lightheadedness passed. This afternoon he was leaning forward over a chair and his was rubbing his shoulders. When he got up he felt very lightheaded and feels that he nearly passed out. Otherwise, patient reports he is feeling well. He states that aside from these episodes of dizziness, that today is the best that he has felt since the surgery. He does have some sternal discomfort. Otherwise denies chest pain, cough, shortness of breath, abdominal pain, nausea, vomiting. He does complain of a considerable amount of "brain fog" which she has been experiencing since the surgery. His surgery was over 3 hours long. He was able to walk in the cul-de-sac today and went up the stairs without difficulty. Pericardial effusion was known at time of discharge from [facility]. Noah grossman, as it was not hemodynamically significant, the decision was made to continue watchful waiting In the emergency room patient in atrial fibrillation with rates ranging 1 teens to 130s. Blood pressure has been stable. Adequate oxygenation on room air. He has had multiple runs of nonsustained V. tach. ER course: Normal saline x 1 L Plasma-Lyte x 500 mL Tylenol 325 mg Amiodarone 200 mg Ibuprofen 600 mg Vitamin C 500 mg Case was discussed between the ER attending and cardiology. Allergies Allergy/AdvReac Type Severity Reaction Status Date / Time No Known Allergies Allergy Verified 12/14/24 13:55 Home Medications Medication Instructions Recorded Confirmed Type Medical Marijuana 1 gummy PO UD PRN Sleep 09/01/23 12/14/24 History flecainide 150 mg tablet 150 mg PO Q12H #180 tabs 01/29/24 12/14/24 Rx metoprolol succinate 100 mg 100 mg PO BID #180 tabs 08/23/24 12/14/24 Rx tablet,extended release 24 hr pantoprazole 40 mg tablet,delayed 40 mg PO DAILY #30 tabs 10/04/24 12/14/24 Rx release (Protonix) rosuvastatin 40 mg tablet 20 mg (1/2 x 40 mg) PO HS #90 tabs 12/14/24 12/14/24 Rx Aspir-81 81 mg PO DAILY 02/17/25 02/17/25 History acetaminophen 325 mg tablet 325 mg PO QID PRN pain or fever 02/17/25 02/17/25 History amiodarone 200 mg tablet 200 mg PO TID 02/17/25 02/17/25 History colchicine 0.6 mg tablet mg 02/17/25 History colchicine 0.6 mg tablet mg 02/17/25 History furosemide 20 mg tablet 20 mg PO DAILY 02/17/25 02/17/25 History ibuprofen 600 mg tablet 600 mg PO TID 02/17/25 02/17/25 History methocarbamol 750 mg tablet mg 02/17/25 History metoprolol tartrate 25 mg tablet 25 mg PO TID 02/17/25 02/17/25 History potassium chloride 20 mEq 20 meq PO DAILY 02/17/25 02/17/25 History tablet,extended release(part/cryst) (Carlos Lopez) rosuvastatin 40 mg tablet 20 mg PO DAILY 02/17/25 02/17/25 History Past Med/Surg History Problem List (Updated 02/18/25 @ 02:23 by Cathryn Ordonez DO) Pericardial effusion Severe mitral regurgitation Ventricular tachycardia Encounter for pre-operative examination Diabetes Mitral regurgitation Echo 12/2021: Moderate MVP, Moderate-severe MR Paroxysmal atrial fibrillation Medical History COVID-19 virus infection (11/2019) Diabetes mellitus, type 2 "hx- has had 50lb weight loss" RVOT ventricular tachycardia Hypertrophy of nasal turbinates Frequent PVCs Deviated nasal septum Chronic cerebral ischemia Ventricular ectopic beats Frequent Mitral valve prolapse Echo 12/2021: Moderate MVP, Moderate-severe MR Hypertension Hyperlipidemia COVID-19 Late November 2019- hospitalized, required supplemental oxygen (only during hospitalization), blood transfusion ([facility] Protocol per patient) Non-sustained ventricular tachycardia Remote hx Surgical History History of colonoscopy Family history of reaction to anesthesia Mother- increased confusion with anesthesia History of transesophageal echocardiography ([facility]) History of cardioversion Multiple Hx of foot surgery left Hx of arthroscopic knee surgery left Hx of lithotripsy Multiple Family History Other No significant family history Social History Smoking Status: Former smoker Tobacco Type: Cigarettes Second Hand Exposure: Yes (hx as child); Do You Dip or Chew Tobacco: No (as a teen only; advised); Hx Alcohol Use: Yes Alcohol type: beer Hx Substance Use: No Preferred Language: Yoruba Communication Ability: Effective Public Administration Teacher Required: No Beliefs That Will Affect Care: None Current Living Situation: Spouse Feels Safe at Home: Yes Safety Concerns: Feels Safe At This Time Assistive Devices: None Review of Systems Review of Systems: All systems reviewed & are unremarkable except as noted in HPI & below Physical Exam Physical Exam: General: patient resting comfortably, NAD, non-toxic in appearance, AA&O x 4 Skin: warm, dry, intact, no rashes or lesions, sternotomy wound well- approximated with no bleeding, erythema or drainage HEENT: NC/AT, PERRL, EOMI, anicteric sclera, conjunctiva without injection, external ear normal to inspection and nontender, nares patent, moist mucus membranes, dentition intact, no oropharyngeal lesions, neck supple, trachea midline, no LAD, no thyromegaly, no JVD Heart: +S1/S2, irregularly irregular, tachycardic, no murmur/rubs/gallops, heart sounds slightly distant Lungs: equal air entry bilaterally, no rales/rhonchi/wheezes Abd: +BS, soft, NT/ND, no masses/organomegaly/ascites Ext: warm, 2+ pulses in UE/LE bilaterally, no clubbing/cyanosis or edema Neuro: nonfocal, patient AA&O x 4, speech intact, no facial droop, moving all extremities on command with equal strength 5/5 Results & Data Results & Data Vital Signs (Past 12 Hours) Vital Signs Temp Pulse Pulse Resp BP BP Pulse Ox 02/17/25 18:30 126 H 18 125/70 94 02/17/25 18:03 117 H 17 109/82 98 02/17/25 17:32 117 H 24 111/83 97 02/17/25 17:32 130 H 02/17/25 17:30 130 H 18 111/83 96 02/17/25 17:00 127 H 23 96 02/17/25 16:42 113 H 19 95 02/17/25 16:35 36.8 C 75 17 111/76 97 02/17/25 16:35 36.8 C 75 17 111/76 97 O2 Del Method 02/17/25 18:30 02/17/25 18:03 02/17/25 17:32 02/17/25 17:32 02/17/25 17:30 02/17/25 17:00 02/17/25 16:42 Room Air 02/17/25 16:35 Room Air 02/17/25 16:35 Room Air Laboratory Results Laboratory Results WBC 15.08 K/ul (4.8-10.8) H 02/17/25 16:45 RBC 3.84 M/uL (4.70-6.10) L 02/17/25 16:45 Hgb 12.1 g/dl (14.0-18.0) L 02/17/25 16:45 Hct 35.2 % (42.0-52.0) L 02/17/25 16:45 MCV 91.7 fL (80.0-100.0) 02/17/25 16:45 MCH 31.5 pg (25.0-34.0) 02/17/25 16:45 MCHC 34.4 g/dL (32.0-36.0) 02/17/25 16:45 RDW Std Deviation 43.8 fL (36.4-46.3) 02/17/25 16:45 RDW Coeff of Alireza 13.2 % (11.5-14.5) 02/17/25 16:45 Plt Count 302 K/uL (130-400) 02/17/25 16:45 MPV 9.3 fL (9.4-12.4) L 02/17/25 16:45 Immature Gran % (Auto) 1.1 % 02/17/25 16:45 Neut % (Auto) 75.3 % 02/17/25 16:45 Lymph % (Auto) 13.3 % 02/17/25 16:45 [place] % (Auto) 8.4 % 02/17/25 16:45 Eos % (Auto) 1.4 % 02/17/25 16:45 Baso % (Auto) 0.5 % 02/17/25 16:45 Neut # (Auto) 11.37 K/uL (1.40-6.50) H 02/17/25 16:45 Lymph # (Auto) 2.00 K/uL (1.20-3.40) 02/17/25 16:45 [place] # (Auto) 1.26 K/uL (0.11-0.59) H 02/17/25 16:45 Eos # (Auto) 0.21 K/uL (0.00-0.50) 02/17/25 16:45 Baso # (Auto) 0.07 K/uL (0.00-0.20) 02/17/25 16:45 Immature Gran # (Auto) 0.17 K/uL (0.01-0.20) 02/17/25 16:45 PT 11.2 Seconds (9.0-12.0) 02/17/25 16:45 INR 1.0 (0.9-1.1) 02/17/25 16:45 APTT 24 Seconds (21-31) 02/17/25 16:45 PTT Ratio 0.9 02/17/25 16:45 Sodium 139 mmol/L (136-145) 02/17/25 16:45 Potassium 4.4 mmol/L (3.5-5.1) 02/17/25 16:45 Chloride 105 mmol/L (98-107) 02/17/25 16:45 Carbon Dioxide 26 mmol/L (21-32) 02/17/25 16:45 Anion Gap 8 (3-11) 02/17/25 16:45 BUN 18 mg/dl (6-23) 02/17/25 16:45 Creatinine 0.98 mg/dl (0.6-1.4) 02/17/25 16:45 Est Cr Clr Drug Dosing 80.1 ml/min 02/17/25 16:45 eGFR 85.57 02/17/25 16:45 BUN/Creatinine Ratio 18.4 (10-20) 02/17/25 16:45 Glucose 149 mg/dl (70-99(Fasting)) H 02/17/25 16:45 Calcium 9.5 mg/dl (8.6-10.3) 02/17/25 16:45 Phosphorus 4.1 mg/dl (2.5-4.9) 02/17/25 16:45 Magnesium 2.3 mg/dl (1.7-2.4) 02/17/25 16:45 Total Bilirubin 0.6 mg/dl (0.2-1.0) 02/17/25 16:45 AST 42 U/L (13-39) H 02/17/25 16:45 ALT 46 U/L (7-52) 02/17/25 16:45 Alkaline Phosphatase 71 U/L (34-104) 02/17/25 16:45 Troponin I High Sens 138.9 pg/ml (0-20) H* 02/17/25 19:27 B-Natriuretic Peptide 442 pg/ml (0-100) H 02/17/25 16:45 Total Protein 7.0 gm/dl (6.0-8.3) 02/17/25 16:45 Albumin 4.2 gm/dl (3.4-5.0) 02/17/25 16:45 Globulin 2.8 gm/dl (2.5-4.0) 02/17/25 16:45 Albumin/Globulin Ratio 1.5 (0.9-2) 02/17/25 16:45 Lipase 104 U/L (11-82) H 02/17/25 16:45 Impressions Chest CTA 02/17/25 16:42 CT pulmonary angiogram with IV contrast History: Chest pain COMPARISON: None TECHNIQUE: CT angiography of the chest was performed without IV contrast followed by IV contrast, including 3D post processing CTA image reconstruction. Dose reduction techniques were achieved by using automatic exposure control and/or adjustment of mA and/or kV according to patient size and/or use of iterative reconstruction technique. FINDINGS: Diagnostic quality: Adequate There is no evidence for pulmonary embolism. The heart is enlarged. Left atrial appendage clip. Surgical clips anterior to the ascending thoracic aorta. There is a large pericardial effusion. There are no abnormally enlarged hilar or mediastinal lymph nodes. The central tracheobronchial tree is clear. The lungs are clear. Trace left pleural effusion. Limited visualized upper abdomen. No destructive osseous changes are seen. Median sternotomy changes. Small focus of air subcutaneously in the upper chest overlying the sternum. IMPRESSION: No evidence for pulmonary embolism. Cardiomegaly. Large pericardial effusion. Trace left pleural effusion. Electronically signed by Jerel Kilgore 02-17-2025 6:20 PM Chest X-Ray 02/17/25 16:42 Clinical History: Chest pain Technique: A frontal view of the chest was obtained Comparison is made to the prior examination dated 10/04/2024 Findings: There are no confluent pulmonary infiltrates. The heart is enlarged. New sternal wires are present. No pleural effusion or pneumothorax is seen. There is mild left lung base atelectasis. There is an old healed fracture of the right sixth rib. No foreign body is seen Impression: 1. Mild left lung base atelectasis 2. Cardiomegaly Electronically signed by Adams Mandel 02-17-2025 5:35 PM Code Status & VTE Plan VTE Prophylaxis Plan VTE Prophylaxis will be ordered: Yes PG Care Time/CCT Total # of Minutes Spent Total Time Spent with Patient: Total time spent is greater than 50% in coordination of care (as documented) at patient's floor/unit and/or counseling patient: Coding Level of Care Code 91667 INT INP/OBS CARE 3/75MIN Diagnoses Pericardial effusion I31.39 Mitral valve prolapse I34.1 Paroxysmal atrial fibrillation I48.0 Non-sustained ventricular tachycardia I47.2 Diabetes mellitus, type 2 E11.9 Hypertension I10 Hyperlipidemia E78.5
[2025-02-17] MEDS: ACETAMINOPHEN 325 MG TAB PO STA (21:00)
[2025-02-17] MEDS: AMIODARONE 200 MG TAB PO ONE (21:00)
[2025-02-17] MEDS: IBUPROFEN 600 MG TAB PO STA (21:00)
[2025-02-17] MEDS: METOPROLOL TARTRATE 25 MG TAB PO STA (21:04)
[2025-02-17] MEDS: ASCORBIC ACID 500 MG TAB PO STA (21:10)
[2025-02-17] MEDS ORDERED: POLYETHYLENE (MIRALAX) 17 GM PACK PO PRN (21:53)
[2025-02-17] MEDS ORDERED: ONDANSETRON INJ 2 MG/ML 2 ML VIAL IV PRN (21:53)
[2025-02-17] MEDS: PLASMA-LYTE A 500 ML IV SCH (23:14)
[2025-02-18] MEDS ORDERED: ACETAMINOPHEN 325 MG TAB PO PRN (02:28)
[2025-02-18] MEDS: ACETAMINOPHEN 325 MG TAB PO PRN (03:57)
[2025-02-18 06:02] LABS: Hematocrit (blood only) 31.7 % (42.0-52.0); Hemoglobin 10.9 g/dl (14.0-18.0); Mean Corpuscular Hemoglobin 31.4 pg (25.0-34.0); Mean Corpuscular Volume 91.4 fL (80.0-100.0); Platelet Count 279 K/uL (130-400); RDW Standard Deviation 42.5 fL (36.4-46.3); Red Blood Count 3.47 M/uL (4.70-6.10); White Blood Count 12.21 K/ul (4.8-10.8)
[2025-02-18 06:22] LABS: Anion Gap 8.0 (3-11); Blood Urea Nitrogen 13.0 mg/dl (6-23); Calcium 8.9 mg/dl (8.6-10.3); Carbon Dioxide 24.0 mmol/L (21-32); Chloride 107.0 mmol/L (98-107); Creatinine Clr Calc Pharmacy 103.3 ml/min; Glucose 130.0 mg/dl (70-99(Fasting)); Magnesium 2.2 mg/dl (1.7-2.4); Potassium 4.1 mmol/L (3.5-5.1); Sodium 139.0 mmol/L (136-145)
[2025-02-18] MEDS: ROSUVASTATIN CALCIUM 20 MG TAB PO SCH (08:17)
[2025-02-18] MEDS: AMIODARONE 200 MG TAB PO SCH (08:17)
[2025-02-18] MEDS: ASPIRIN 81 MG ECTAB PO SCH (08:17)
[2025-02-18] MEDS: METOPROLOL TARTRATE 25 MG TAB PO SCH ×2 (08:17→13:04)
--- NOTE | 2025-02-18 09:23 | Cardiology Consultation ---
Date of Consultation February 18, 2025 Assessment & Plan (1) Near syncope: (2) Paroxysmal atrial fibrillation: (3) Anticoagulation therapy not indicated: (4) Ventricular tachycardia: (5) Mitral valve disorder: (6) Pericardial effusion: Plan 1. Near syncope: There are a lot of reasons he could have near syncope and it is not clear what happened. The episodes are quite sudden and brief suggesting that they are a transient drop in blood pressure which may indicate a rhythm disturbance. Possible rhythm disturbances include termination of atrial fibrillation with a very slow rate, a change in heart rate (either an increase or decrease) in the setting of a pericardial effusion as well as ventricular tachycardia (he does have nonsustained ventricular tachycardia). The episode we saw on telemetry may have been long enough to explain his symptoms. It is difficult to determine which of these it might be however I suspect the ventricular tachycardia. So far on telemetry he is in atrial fibrillation with somewhat rapid but stable heart rate and has not had the symptoms so the atrial fibrillation itself is unlikely to have caused it. 2. Atrial fibrillation: I do not know when he had recurrent atrial fibrillation, he was cardioverted after surgery but now is back in atrial fibrillation. He cannot tell me when this might have occurred. Although he did have ablation at surgery it is still early after surgery so the atrial fibrillation he has now may not be business process representative of his future arrhythmias. We could consider cardioversion but it may be better to get his rate controlled here, continue the amiodarone and see whether he converts spontaneously. Perf orming another cardioversion could be done but he would most likely revert back to atrial fibrillation so not sure there is much reason to do that now, if he remains in atrial fibrillation after a month or so then we probably should. 3. Anticoagulation: Due to his low [id number] score (1 for age) he is not on anticoagulation. Most of us prefer people to be on anticoagulation when we do cardioversions, we can discuss that. 4. Nonsustained ventricular tachycardia: He has nonsustained ventricular tachycardia on telemetry, he has several episodes which may be long enough to explain his symptoms or close to it. I know he has had ventricular ectopy in the past but I do not see a monitor to determine the frequency or duration. I do not know if this is a change. It should be treated, it may in part be catecholamine mediated and we should go up on beta-blockade. He is on oral amiodarone but that will take some time to take effect and I am going to increase the dose. If he has further prolonged episodes of ventricular tachycardia we should switch to IV amiodarone. 5. Mitral valve: Clinically he is doing well following his mitral valve repair and the echo shows only mild MR. 6. Pericardial effusion: He has a known pericardial effusion, it had increased on the day of his discharge (February 14, 2025) and this could make him more susceptible to hypotension from rhythm changes even though it is not causing symptomatic hypotension here at rest during atrial fibrillation. It does not seem to cause hemodynamic effect based on his echo at rest, and I cannot tell whether it has increased since his more recent echo since we cannot review the images. There is no indication to tap the effusion. History of Present Illness Reason for Consultation: Atrial fibrillation, presyncope Attending Physician: Jennifer Whitney MD History of Present Illness This is a 64-year-old male with a history of moderate to severe mitral regurgitation and paroxysmal atrial fibrillation although he has required cardioversion in the past. Recently his mitral valve has developed worsening of mitral regurgitation and mitral valve repair was performed at [facility] on February 08, 2025, he also had what sounds like a surgical maze procedure and I believe an atrial appendage clip. He did develop a postoperative pericardial effusion and he is on colchicine, an echocardiogram done February 14, 2025 (I believe that was the day of his discharge) showed an increase in fluid but no evidence of tamponade so it was not addressed. He has also had postoperative atrial fibrillation, he received cardioversion by his description after surgery which he believes was successful in converting his rhythm to normal but he is now in atrial fibrillation and he is not aware of when he returned to atrial fibrillation. He is on amiodarone and beta-blockade.. He presented to the emergency room after having an episode of lightheadedness the day before his presentation here, this resolved fairly quickly. On the afternoon of February 17, 2025 he became lightheaded and presyncopal while sitting, his describes a brief loss of consciousness although patient believes he was awake but not feeling like he could respond appropriately. He came to the emergency room. In the emergency room he was in atrial fibrillation with a rapid heart rate but was hemodynamically stable. He does have a pericardial effusion evidently from an ultrasound here in the emergency room and a formal echo was done this morning. His echocardiogram shows normal left ventricular size with mild left ventricular dysfunction and mild mitral regurgitation, there is a moderate predominantly posterior pericardial effusion without evidence of tamponade. We do not have images from his last echo but it sounds as though it may be similar. Since going home he has been somewhat active, he has been walking up and down stairs and around his house and has not had lightheadedness or dizziness or shortness of breath other than the symptoms described above. He does not have orthopnea or PND. Allergies Allergy/AdvReac Type Severity Reaction Status Date / Time No Known Allergies Allergy Verified 12/14/24 13:55 Home Medications Medication Instructions Recorded Confirmed Type Medical Marijuana 1 gummy PO UD PRN Sleep 09/01/23 12/14/24 History flecainide 150 mg tablet 150 mg PO Q12H #180 tabs 01/29/24 12/14/24 Rx metoprolol succinate 100 mg 100 mg PO BID #180 tabs 08/23/24 12/14/24 Rx tablet,extended release 24 hr pantoprazole 40 mg tablet,delayed 40 mg PO DAILY #30 tabs 10/04/24 12/14/24 Rx release (Protonix) rosuvastatin 40 mg tablet 20 mg (1/2 x 40 mg) PO HS #90 tabs 12/14/24 12/14/24 Rx Aspir-81 81 mg PO DAILY 02/17/25 02/17/25 History acetaminophen 325 mg tablet 325 mg PO QID PRN pain or fever 02/17/25 02/17/25 History amiodarone 200 mg tablet 200 mg PO TID 02/17/25 02/17/25 History colchicine 0.6 mg tablet mg 02/17/25 History colchicine 0.6 mg tablet mg 02/17/25 History furosemide 20 mg tablet 20 mg PO DAILY 02/17/25 02/17/25 History ibuprofen 600 mg tablet 600 mg PO TID 02/17/25 02/17/25 History methocarbamol 750 mg tablet mg 02/17/25 History metoprolol tartrate 25 mg tablet 25 mg PO TID 02/17/25 02/17/25 History potassium chloride 20 mEq 20 meq PO DAILY 02/17/25 02/17/25 History tablet,extended release(part/cryst) (Klor-Con M) rosuvastatin 40 mg tablet 20 mg PO DAILY 02/17/25 02/17/25 History Patient History Medical History COVID-19 virus infection (11/2019) Diabetes mellitus, type 2 "hx- has had 50lb weight loss" RVOT ventricular tachycardia Hypertrophy of nasal turbinates Frequent PVCs Deviated nasal septum Chronic cerebral ischemia Ventricular ectopic beats Frequent Mitral valve prolapse Echo 12/2021: Moderate MVP, Moderate-severe MR Hypertension Hyperlipidemia COVID-19 Late November 2019- hospitalized, required supplemental oxygen (only during hospitalization), blood transfusion ([facility] Protocol per patient) Non-sustained ventricular tachycardia Remote hx Surgical History History of colonoscopy Family history of reaction to anesthesia Mother- increased confusion with anesthesia History of transesophageal echocardiography ([facility]) History of cardioversion Multiple Hx of foot surgery left Hx of arthroscopic knee surgery left Hx of lithotripsy Multiple Family History Other No significant family history Social History Smoking Status: Former smoker Tobacco Type: Cigarettes Second Hand Exposure: Yes (hx as child); Do You Dip or Chew Tobacco: No (as a teen only; advised); Hx Alcohol Use: Yes Alcohol type: beer Hx Substance Use: No Preferred Language: Nicaraguan Communication Ability: Effective 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 HEENT: Unremarkable Neck: No jugular venous distention, carotid pulses are irregular but otherwise normal and equal bilaterally without bruits. Pulmonary: Slight crackles on auscultation bilaterally. Cardiac: Irregular rhythm with no murmur, gallop or rub. Abdomen: Soft, nontender with normal bowel sounds. Extremities: No edema. Neurologic: No focal findings. Skin: No rash, ecchymoses or petechiae. Results & Data Vital Signs (Past 12 Hours) Vital Signs Temp Pulse Pulse Resp BP BP Pulse Ox 02/18/25 08:28 36.9 C 118 H 18 116/73 96 02/18/25 06:31 134 H 122/82 02/18/25 02:47 36.9 C 139 H 20 130/87 96 02/18/25 02:30 141 H 126/88 02/18/25 01:23 132 H 115/96 02/18/25 00:36 134 H 103/57 L 02/17/25 23:15 105 H 02/17/25 23:15 02/17/25 23:12 36.9 C 123 H 18 127/85 95 02/17/25 22:00 37 C 127 H 16 147/97 H 97 02/17/25 21:53 37.0 C 136 H 16 147/97 H 96 O2 Del Method 02/18/25 08:28 Room Air 02/18/25 06:31 02/18/25 02:47 Room Air 02/18/25 02:30 02/18/25 01:23 02/18/25 00:36 02/17/25 23:15 02/17/25 23:15 Room Air 02/17/25 23:12 Room Air 02/17/25 22:00 Room Air 02/17/25 21:53 Room Air Laboratory Results Cardiac Enzymes 02/17/25 02/17/25 Range/Units 16:45 19:27 AST 42 H (13-39) U/L Troponin I High Sens 146.8 H* 138.9 H* (0-20) pg/ml B-Natriuretic Peptide 442 H (0-100) pg/ml Coagulation 02/17/25 Range/Units 16:45 PT 11.2 (9.0-12.0) Seconds APTT 24 (21-31) Seconds B-Natriuretic Peptide 442 H (0-100) pg/ml CBC 02/17/25 02/18/25 Range/Units 16:45 05:30 WBC 15.08 H 12.21 H (4.8-10.8) K/ul RBC 3.84 L 3.47 L (4.70-6.10) M/uL Hgb 12.1 L 10.9 L (14.0-18.0) g/dl Hct 35.2 L 31.7 L (42.0-52.0) % Plt Count 302 279 (130-400) K/uL Neut # (Auto) 11.37 H (1.40-6.50) K/uL Lymph # (Auto) 2.00 (1.20-3.40) K/uL Emmons # (Auto) 1.26 H (0.11-0.59) K/uL Eos # (Auto) 0.21 (0.00-0.50) K/uL Baso # (Auto) 0.07 (0.00-0.20) K/uL Comprehensive Metabolic Panel 02/17/25 02/18/25 Range/Units 16:45 05:30 Sodium 139 139 (136-145) mmol/L Potassium 4.4 4.1 (3.5-5.1) mmol/L Chloride 105 107 (98-107) mmol/L Carbon Dioxide 26 24 (21-32) mmol/L BUN 18 13 (6-23) mg/dl Creatinine 0.98 0.76 (0.6-1.4) mg/dl Glucose 149 H 130 H (70-99(Fasting)) mg/dl Calcium 9.5 8.9 (8.6-10.3) mg/dl AST 42 H (13-39) U/L ALT 46 (7-52) U/L Alkaline Phosphatase 71 (34-104) U/L Total Protein 7.0 (6.0-8.3) gm/dl Albumin 4.2 (3.4-5.0) gm/dl Intake and Output 02/17/25 02/18/25 02/18/25 22:59 06:59 14:59 Intake Total 1600 / 2100 500 / 2100 Output Total 700 / 700 Balance 1600 / 1400 -200 / 1400 Intake: IV 1500 / 2000 500 / 2000 Plasma-Lyte A 500 ml @ 80 mls/ 500 / 1000 500 / 1000 hr IV .Q6H15M EVIE Rx#:[id number] Sodium Chloride 0.9% 1,000 ml @ 1000 / 1000 999 mls/hr IV .Q1H1M STA Rx#: [id number] Oral 100 / 100 Output: Urine 700 / 700 Other: Other Intake Source NPO Weight 85.9 kg Weight Measurement Method Estimated by Patient Diagnostic Findings His electrocardiogram here on presentation demonstrates atrial fibrillation at 137 bpm with nonsustained ventricular tachycardia. His ventricular tachycardia does have an inferiorly directed axis with a left bundle pattern possibly representing a right ventricular outflow or coronary cusp origin. Telemetry shows atrial fibrillation with a rate of around 120 bpm with multiple runs of nonsustained ventricular tachycardia. These appear monomorphic and are probably similar to what he has on his electrocardiogram. He had 1 prolonged episode of ventricular tachycardia at around 200 bpm on telemetry, this terminated spontaneously PG Care Time/CCT Total # of Minutes Spent Total Time Spent with Patient: Total time spent is greater than 50% in coordination of care (as documented) at patient's floor/unit and/or counseling patient: Coding Level of Care Code 36511 INT INP/OBS CARE 3/75MIN Diagnoses Near syncope R55 Paroxysmal atrial fibrillation I48.0 Anticoagulation therapy not indicated Z78.9 Ventricular tachycardia I47.20 Mitral valve disorder I05.9 Pericardial effusion I31.39
--- NOTE | 2025-02-18 11:28 | XCELERA ---
[id number] [id number]
--- NOTE | 2025-02-18 14:51 | Hospitalist Progress Note ---
Date of Service February 18, 2025 Assessment & Plan (1) Paroxysmal atrial fibrillation: (2) Pericardial effusion: (3) Non-sustained ventricular tachycardia: (4) Syncope: Plan 64-year-old male with history of severe MR status post mitral valve repair, atrial clip and ablation performed at [facility] on 02/08/2025. He came in with episodes of lightheadedness and a syncopal/presyncopal episode witnessed by this . He was found to be in AF with RVR, NSVT / frequent ectopy and large pericardial effusion. He had postop afib and was cardioverted, has been on amiodarone and toprol XL. Consulted cardiology Dr. Kapadia #Syncope - could have been related to afib, VT or another arrhythmia -continue monitor #Atrial fibrillation with RVR - postop afib and still may resolve -rates around 130 overnight has not been active -continue amiodarone -increasing metoprolol tartrate toward his usual daily dose (100 XL bid). Increased to 25 q6, tolerating so increase to 50 mg q6h -not anticoagulated, low CHADS-vasc #Frequent ectopy and NSVT -continue monitor tele, electrolytes and meds above -AM BMP mag #Pericardial effusion -obtained TTE which shows EF 45-50%, trace MR, mild-mod TR, moderate posterior pericardial effusion without RV collapse, no e/o tamponade #Mild elevation of HS-troponin 146-->138. No evidence of ACS. elevation might still be related to valve surgery or myocardial demand ischemia from arrhythmia #Productive cough - Bibasilar coarse crackles on exam, though still expect atelectasis. No peripheral edema. consider pneumonia or tracheobronchitis. WBC elevated at 15-->12 but chest CTA with clear lungs. Check procal. #history of DM type 2, resolved after 50 pounds weight loss #HTN - meds above #HLD - statin Discussed plan of care with Dr. Kapadia, patient, his at bedside Admission and Anticipated Discharge Date Admission Date: February 17, 2025 Subjective Feels ok at rest, has intermittent lightheaded spells but nothing like yesterday when he was presyncopal/syncopal Sternotomy pain present but not taking any opioids since POD 2 Has cough productive of yellow-white sputum - started postop Physical Exam 2 Physical Exam: Last 24h vitals reviewed GEN: no acute distress, sitting in bed, holding heart pillow HEENT: pupils equal, sclerae anicteric, moist MM RESP: normal WOB, CTAB except coarse bibasilar crackles CV: irreg ireg tachy no mrg. median sternotomy healing well, no drainage or erythema ABD: soft/nt/nd +BT : no washburn SKIN: warm and dry, no generalized rashes NEURO: AOx person, place, and situation. Face symmetric, speech normal, moves 4 ext spontaneously and equally Results & Data Results & Data Vital Signs (Past 12 Hours) Vital Signs Temp Pulse Resp BP BP Pulse Ox O2 Del Method 02/18/25 11:16 Room Air 02/18/25 11:08 37.3 C 98 H 18 100/84 96 Room Air 02/18/25 08:28 36.9 C 118 H 18 116/73 96 Room Air 02/18/25 06:31 134 H 122/82 02/18/25 02:47 36.9 C 139 H 20 130/87 96 Room Air Laboratory Results 02/18/25 05:30 02/18/25 05:30 PG Care Time/CCT Total # of Minutes Spent Total Time Spent with Patient: Total time spent is greater than 50% in coordination of care (as documented) at patient's floor/unit and/or counseling patient: Coding Level of Care Code 17406 SUB INP/OBS CARE 3/50MIN Diagnoses Paroxysmal atrial fibrillation I48.0 Pericardial effusion I31.39 Non-sustained ventricular tachycardia I47.2 Syncope R55
[2025-02-18] MEDS: METOPROLOL TARTRATE 50 MG TAB PO SCH (17:12)
[2025-02-18] MEDS ORDERED: STAT IV Infusion **Titration per Protocol STA (18:19)
[2025-02-18] MEDS ORDERED: 0.2 MICRON FILTER SET 1 EACH IV STA (18:19)
[2025-02-18] MEDS ORDERED: AMIODARONE IV BOLUS & DRIP IV STA (18:19)
[2025-02-18] MEDS: AMIODARONE / D5W 150 MG/100 ML BAG IV STA (18:31)
[2025-02-18] MEDS: AMIODARONE / D5W 360 MG/200 ML BAG IV ONE (18:42)
[2025-02-18] MEDS: DOCUSATE SODIUM 100 MG CAP PO PRN (20:26)
[2025-02-18] MEDS: LORazepam 1 MG TAB SL PRN (20:26)
--- NOTE | 2025-02-18 22:13 | Electrocardiogram Report ---
Test Reason : Blood Pressure : */* mmHG Vent. Rate : 137 BPM Atrial Rate : * BPM P-R Int : * ms QRS Dur : 118 ms QT Int : 342 ms P-R-T Axes : * 87 101 degrees QTcB Int : 516 ms Atrial fibrillation with rapid ventricular response Premature ventricular complexes Consider Anterior infarct , age undetermined Abnormal ECG When compared with ECG of 04-Oct-2024 13:02, Atrial fibrillation has replaced Sinus rhythm Vent. rate has increased by 78 bpm Confirmed by Stas Kapadia ([id number]) on 02/18/2025 10:13:11 PM Referred By: Confirmed By: Stas Kapadia
[2025-02-18] MEDS: MELATONIN 3 MG TAB PO PRN (23:17)
[2025-02-18] MEDS: guaiFENesin 600 MG TABCR PO STA (23:22)
[2025-02-19] MEDS: AMIODARONE / D5W 360 MG/200 ML BAG IV SCH (00:33)
[2025-02-19] MEDS: guaiFENesin 600 MG TABCR PO SCH (08:17)
[2025-02-19] MEDS: DOXYCYCLINE HYCLATE 100 MG CAP PO SCH (14:29)
--- NOTE | 2025-02-19 17:41 | Hospitalist Progress Note ---
Date of Service February 19, 2025 Assessment & Plan (1) Paroxysmal atrial fibrillation: (2) Pericardial effusion: (3) Non-sustained ventricular tachycardia: (4) Syncope: Plan 64-year-old male with history of severe MR status post mitral valve repair, atrial clip and ablation performed at [facility] on 02/08/2025. He came in with episodes of lightheadedness and a syncopal/presyncopal episode witnessed by this . He was found to be in AF with RVR, NSVT / frequent ectopy and large pericardial effusion. He had postop afib and was cardioverted, has been on amiodarone and toprol XL. Consulted cardiology Dr. Kapadia #Syncope - could have been related to afib, VT or another arrhythmia lightheaded episode 02/18 that correlated with a brief episode of narrow complex SVT which was faster than expect for afib - reviewed strip which is in chart -continue monitor #Atrial fibrillation with RVR - postop afib and still may meterman resolve -converted to NSR evening of 02/18 after amiodarone bolus and drip - still running -continue metoprolol 50 mg q6h -not anticoagulated, low CHADS-vasc #Frequent ectopy and NSVT -continue monitor tele, electrolytes and meds above -K and mag normal today #Pericardial effusion -obtained TTE which shows EF 45-50%, trace MR, mild-mod TR, moderate posterior pericardial effusion without RV collapse, no e/o tamponade #Mild elevation of HS-troponin 146-->138. No evidence of ACS. elevation might still be related to valve surgery or myocardial demand ischemia from arrhythmia #Productive cough - Bibasilar coarse crackles on exam, though still expect atelectasis. No peripheral edema. consider pneumonia or tracheobronchitis. WBC elevated at 15-->12 but chest CTA with clear lungs. Procal negative -try course of doxycycline for bronchitis #history of DM type 2, resolved after 50 pounds weight loss #HTN - meds above #HLD - statin Discussed POC with Mr Enriquez and his Admission and Anticipated Discharge Date Admission Date: February 17, 2025 Subjective Had a lightheaded episode yesterday that correlated with a brief episode of narrow complex SVT which was faster than expect for afib Converted to NSR last night 8pm after IV amio Feels fatigued Productive cough continues Physical Exam 2 Physical Exam: Last 24h vitals reviewed GEN: asleep in bed - aroused easily HEENT: pupils equal, sclerae anicteric, moist MM RESP: normal WOB, coarse bib crackles unchanged CV: ireg no mrg. median sternotomy healing well ABD: soft/nt/nd +BT : no washburn SKIN: warm and dry, no generalized rashes NEURO: AOx person, place, and situation. Face symmetric, speech normal, moves 4 ext spontaneously and equally Results & Data Results & Data Vital Signs (Past 12 Hours) Vital Signs Temp Pulse Pulse Resp BP Pulse Ox O2 Del Method 02/19/25 16:03 37.1 C 78 18 114/74 94 Room Air 02/19/25 15:37 76 02/19/25 11:35 70 02/19/25 11:01 36.9 C 71 18 115/73 94 Room Air 02/19/25 08:02 37.1 C 65 18 112/72 93 Room Air 02/19/25 07:51 Room Air Laboratory Results 02/18/25 05:30 02/18/25 05:30 PG Care Time/CCT Total # of Minutes Spent Total Time Spent with Patient: Total time spent is greater than 50% in coordination of care (as documented) at patient's floor/unit and/or counseling patient: Coding Level of Care Code 04914 SUB INP/OBS CARE 3/50MIN Diagnoses Paroxysmal atrial fibrillation I48.0 Pericardial effusion I31.39 Non-sustained ventricular tachycardia I47.2 Syncope R55
[2025-02-20 07:57] LABS: Hematocrit (blood only) 32.2 % (42.0-52.0); Hemoglobin 10.7 g/dl (14.0-18.0); Mean Corpuscular Hemoglobin 30.1 pg (25.0-34.0); Mean Corpuscular Volume 90.7 fL (80.0-100.0); Platelet Count 293 K/uL (130-400); RDW Standard Deviation 43.0 fL (36.4-46.3); Red Blood Count 3.55 M/uL (4.70-6.10); White Blood Count 13.26 K/ul (4.8-10.8)
[2025-02-20 08:13] LABS: Anion Gap 7.0 (3-11); Blood Urea Nitrogen 10.0 mg/dl (6-23); Calcium 9.2 mg/dl (8.6-10.3); Carbon Dioxide 27.0 mmol/L (21-32); Chloride 105.0 mmol/L (98-107); Creatinine Clr Calc Pharmacy 112.0 ml/min; Glucose 157.0 mg/dl (70-99(Fasting)); Magnesium 2.0 mg/dl (1.7-2.4); Potassium 3.8 mmol/L (3.5-5.1); Sodium 139.0 mmol/L (136-145)
--- NOTE | 2025-02-20 14:59 | Hospitalist Progress Note ---
Date of Service February 20, 2025 Assessment & Plan (1) Paroxysmal atrial fibrillation: (2) Pericardial effusion: (3) Non-sustained ventricular tachycardia: (4) Syncope: Plan 64-year-old male with history of severe MR status post mitral valve repair, atrial clip and ablation performed at [facility] on 02/08/2025. He came in with episodes of lightheadedness and a syncopal/presyncopal episode witnessed by this . He was found to be in AF with RVR, NSVT / frequent ectopy and large pericardial effusion. He had postop afib and was cardioverted, has been on amiodarone and toprol XL. Consulted cardiology Dr. 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 Maynard - will let amio IV run through tomorrow then can change back to po amio -continue metoprolol 50 mg q6h - change to XL in am at equivalent dose -not anticoagulated, low CHADS-vasc #Frequent ectopy and NSVT -continue monitor tele, electrolytes and meds above -K and mag normal today - reviewed BMP -improved #Pericardial effusion -obtained TTE which shows EF 45-50%, trace MR, mild-mod TR, moderate posterior pericardial effusion without RV collapse, no e/o tamponade #Mild elevation of HS-troponin 146-->138. No evidence of ACS. elevation might still be related to valve surgery or myocardial demand ischemia from arrhythmia #Productive cough - Bibasilar coarse crackles on exam, though still expect atelectasis. No peripheral edema. consider pneumonia or tracheobronchitis. WBC elevated at 15-->12 but chest CTA with clear lungs. Procal negative -course of doxycycline for bronchitis - sputum thinning? #history of DM type 2, resolved after 50 pounds weight loss #HTN - meds above #HLD - statin Discussed POC with Mr Enriquez and his 02/20 Admission and Anticipated Discharge Date Admission Date: February 17, 2025 Subjective Feeling better - no dyspnea on exertion, weakness/malaise improved Feels like cough is same but mucus is thinning No lightheaded episodes Physical Exam 2 Physical Exam: Last 24h vitals reviewed GEN: awake lying in bed HEENT: pupils equal, sclerae anicteric, moist MM RESP: normal WOB CV:median sternotomy healing well ABD: soft/nt/nd +BT : no washburn SKIN: warm and dry, no generalized rashes NEURO: AOx person, place, and situation. Face symmetric, speech normal, moves 4 ext spontaneously and equally Results & Data Results & Data Vital Signs (Past 12 Hours) Vital Signs Temp Pulse Pulse Resp BP Pulse Ox O2 Del Method 02/20/25 14:44 37.2 C 68 18 115/67 94 Room Air 02/20/25 11:29 36.9 C 71 18 100/65 95 Room Air 02/20/25 07:52 77 02/20/25 07:52 Room Air 02/20/25 07:16 37.2 C 72 18 105/68 93 Room Air 02/20/25 06:06 79 115/70 02/20/25 04:31 37.4 C 69 17 105/70 93 Room Air Laboratory Results 02/20/25 07:45 02/20/25 07:45 PG Care Time/CCT Total # of Minutes Spent Total Time Spent with Patient: Total time spent is greater than 50% in coordination of care (as documented) at patient's floor/unit and/or counseling patient: Coding Level of Care Code 77448 SUB INP/OBS CARE 3/50MIN Diagnoses Paroxysmal atrial fibrillation I48.0 Pericardial effusion I31.39 Non-sustained ventricular tachycardia I47.2 Syncope R55
[2025-02-21 06:28] LABS: Anion Gap 6.0 (3-11); Blood Urea Nitrogen 9.0 mg/dl (6-23); Calcium 9.3 mg/dl (8.6-10.3); Carbon Dioxide 28.0 mmol/L (21-32); Chloride 106.0 mmol/L (98-107); Creatinine Clr Calc Pharmacy 104.8 ml/min; Glucose 130.0 mg/dl (70-99(Fasting)); Potassium 3.8 mmol/L (3.5-5.1); Sodium 140.0 mmol/L (136-145)
[2025-02-21] MEDS: AMIODARONE 200 MG TAB PO SCH (07:52)
[2025-02-21] MEDS: METOPROLOL SUCC 50MG EXT REL TAB PO SCH (07:59)
--- NOTE | 2025-02-21 17:51 | Discharge Summary ---
Discharge Summary Date of Service February 22, 2025 Principal Dx & Hospital Course #1 = Principal Diagnosis (1) Paroxysmal atrial fibrillation: (2) Pericardial effusion: (3) Non-sustained ventricular tachycardia: (4) Syncope: Plan 64-year-old male with history of severe MR status post mitral valve repair, atrial clip and ablation performed recently at [facility] on 02/08/2025. He came in with episodes of lightheadedness and a syncopal/presyncopal episode witnessed by this . He was found to be in AF with RVR, NSVT / frequent ectopy and large pericardial effusion. He had had postop afib and was cardioverted in [place], has been on amiodarone and toprol XL. Consulted cardiology #Syncope - could have been related to afib, VT or another arrhythmia. He did have frequent PVCs and NSVTs early in admission. lightheaded episode 02/18 that correlated with a brief episode of narrow complex SVT which was faster than expect for afib - reviewed strip which is in chart did not recur and ectopy improved, no further SVT later in hospital course #Atrial fibrillation with RVR - postop afib and still may group home resolve -converted to NSR evening of 02/18 after amiodarone bolus and drip - changed back to oral amiodarone 02/21. Finished loading dose and Dr. Cobian recommended continuing 200 mg daily -continue metoprolol succinate -not anticoagulated because risk>benefit with large pericardial effusion at this point #Pericardial effusion - known at time of discharge but described as small on records -admission TTE with EF 45-50%, trace MR, mild-mod TR, moderate posterior pericardial effusion without RV collapse, no e/o tamponade -repeat TTE day of discharge with decrease in size of pericardial effusion #Mild elevation of HS-troponin 146-->138. No evidence of ACS. elevation might still be related to valve surgery or myocardial demand ischemia from arrhythmia #Productive cough - acute tracheobronchitis - Bibasilar coarse crackles on exam, WBC elevated at 15, but chest CTA with clear lungs. Procal negative -he's had a big improvement in cough, resolution of sputum and leukocytosis on course of oral doxycycline #history of DM type 2, resolved after 50 pounds weight loss #HTN - meds above #HLD - statin Discussed POC with Dr. Cobian, Mr Enriquez and his 02/22 Notes For Next Care Provider Medication Changes From Visit finish po doxycycline amiodarone decreased to 200 mg daily as previously planned Admission HPI Per Admitting Provider Ariel Enriquez He is a 64-year-old male with history of hypertension, hyperlipidemia, diabetes, mitral valve disease status post mitral valve repair performed at the [facility] on 02/08/2025. Patient had mitral valve repair, atrial clip and ablation for atrial fibrillation performed while at the [facility]. He reports that his surgery went well with no complications identified. He did have to be cardioverted out of (presumably) atrial fibrillation x 1 postoperatively. He was discharged home on 02/15. He has an appointment scheduled for 04/06/2025 to follow-up with cardiology. Yesterday (02/16) patient became slightly lightheaded. He was sitting on the couch when the sensation came on. He sat back and relaxed and lay down for little bit and the lightheadedness passed. This afternoon he was leaning forward over a chair and his was rubbing his shoulders. When he got up he felt very lightheaded and feels that he nearly passed out. Otherwise, patient reports he is feeling well. He states that aside from these episodes of dizziness, that today is the best that he has felt since the surgery. He does have some sternal discomfort. Otherwise denies chest pain, cough, shortness of breath, abdominal pain, nausea, vomiting. He does complain of a considerable amount of "brain fog" which she has been experiencing since the surgery. His surgery was over 3 hours long. He was able to walk in the cul-de-sac today and went up the stairs without difficulty. Pericardial effusion was known at time of discharge from [facility]. However, as it was not hemodynamically significant, the decision was made to continue watchful waiting In the emergency room patient in atrial fibrillation with rates ranging 1 teens to 130s. Blood pressure has been stable. Adequate oxygenation on room air. He has had multiple runs of nonsustained V. tach. ER course: Normal saline x 1 L Plasma-Lyte x 500 mL Tylenol 325 mg Amiodarone 200 mg Ibuprofen 600 mg Vitamin C 500 mg Case was discussed between the ER attending and cardiology. Discharge Exam Last 24h vitals reviewed GEN: sitting up in chair HEENT: pupils equal, sclerae anicteric, moist MM RESP: normal WOB - lungs basically clear today, extremely slight crackle R base CV:median sternotomy healing well SKIN: warm and dry, no generalized rashes, no peripheral edema NEURO: AOx person, place, and situation. Face symmetric, speech normal, moves 4 ext spontaneously and equally Discharge Plan Discharge Items Patient Disposition: Home - Self-Care Reason For Visit: PERICARDIAL EFFUSION Discharge Diagnosis: Atrial fibrillation with rapid ventricular rate, presyncope, acute bronchitis Condition on Discharge: Good Activity: Per Instructions section Non-emergency contact: Primary Care Provider and Associate Professor Of Art History Call non-emergency contact if: you have any medication questions and your symptoms worsen Follow-up/Referrals: Merlin Cobian MD [Physician] - 03/02/25 Erica Hawthorne MD [Primary Care Provider] - (Call the office to schedule a hospital follow up appointment) Diet: Heart Healthy Addtl Attending Provider Instructions: You were treated for rapid atrial fibrillation. You had a few other arrhythmias (fast heart beat of various kinds) one of which may have led to the pre-syncope episode and lightheaded episodes. You converted into normal rhythm on Friday with IV amiodarone. At this point Dr. Cobian recommends decreasing the amiodarone to 200 mg once a day (as previously planned by [facility]). If you don't have mucus, you don't need the guaifenesin any more, but if cough is bothering you a cough suppressant may help - these are over the counter and the active ingredient is usually dextromethorphan (ie robitussin and other brands). there is a long-acting brand called Delsym if the cough is really bad Its ok to take meds for seasonal allergies - flonase and antihistamines like zyrtec (cetirizine) and yasmin (fexofenadine) etc You seem to have a bacterial bronchitis that's aggravating your lungs - this is getting better on antibiotic (doxycycline). This antibiotic could cause nausea or diarrhea, and it causes a sun sensitive rash. You could take a probiotic to prevent diarrhea. Get immediate medical attention if you're having more episodes of passing out. If you get lightheaded, sit down right away (even on the floor!). No driving as per your sternal precautions and avoid activities where falling or passing out could be dangerous. A good amount of activity for you right now is walking on relatively flat ground. If you're feeling out of breath like you can't carry on a complete conversation, rest or slow down. Eventually your doctors will clear you for more exercise. Follow up with Dr. Cobian and with [facility] as scheduled It was a pleasure taking care of you in the hospital, Jennifer Whitney MD Pending Studies at Discharge: No Stand-Alone Forms: My [facility], Smoking Cessation Medications and DC Order Prescriptions: New doxycycline hyclate 100 mg Capsule 100 mg PO BID Qty: 9 0RF amiodarone 200 mg tablet 200 mg PO DAILY Qty: 30 0RF Rx Instructions: patient already has supply of this Continued metoprolol succinate 100 mg tablet extended release 24 hr 100 mg PO BID Qty: 180 3RF Medical Marijuana 1 gummy PO UD PRN (Reason: Sleep) pantoprazole [Protonix] 40 mg tablet,delayed release (DR/EC) 40 mg PO DAILY Qty: 30 0RF Aspir-81 81 mg PO DAILY acetaminophen 325 mg Tablet 325 mg PO QID PRN (Reason: pain or fever) methocarbamol 750 mg tablet colchicine 0.6 mg tablet colchicine 0.6 mg tablet rosuvastatin 40 mg tablet 20 mg PO DAILY Held ibuprofen 600 mg tablet 600 mg PO TID Hold Instructions: . Discontinued flecainide 150 mg tablet 150 mg PO Q12H Qty: 180 3RF rosuvastatin 40 mg tablet 20 mg PO HS Qty: 90 3RF amiodarone 200 mg Tablet 200 mg PO TID Rx Instructions: Amiodarone 200mg po TID for 10 days then one tablet daiy x 30 days potassium chloride [Klor-Con M20] 20 mEq tablet,ER particles/crystals 20 meq PO DAILY furosemide 20 mg tablet 20 mg PO DAILY metoprolol tartrate 25 mg tablet 25 mg PO TID Discharge Orders: Discharge Order (Routine); Ordered 02/22/25 Ordered By: Jennifer Whitney Admission Data Admit Date/Time: 02/17/25 20:28 Attending Provider: Jennifer Whitney Admit Provider: Cathryn Ordonez Primary Care Provider: Erica Hawthorne Other Providers: Jerel Rey; Cathryn Ordonez Other Interventions: Discharge Summary Assessment (RN) Last Done: 02/22/25 11:27 Hospital Stay Data Consultations 02/17/25 19:05 ED Decision to Admit Stat 02/17/25 20:28 Consult Cardiology Routine Diagnostic Imagining Performed 02/17/25 16:42 CT angio chest PE protocol Stat Pending Results Patient Have Any Pending Studies at Discharge: No Discharge Instructions Given to Patient (Per Discharging Provider) You were treated for rapid atrial fibrillation. You had a few other arrhythmias (fast heart beat of various kinds) one of which may have led to the pre-syncope episode and lightheaded episodes. You converted into normal rhythm on Friday with IV amiodarone. At this point Dr. Cobian recommends decreasing the amiodarone to 200 mg once a day (as previously planned by [facility]). If you don't have mucus, you don't need the guaifenesin any more, but if cough is bothering you a cough suppressant may help - these are over the counter and the active ingredient is usually dextromethorphan (ie robitussin and other brands). there is a long-acting brand called Delsym if the cough is really bad Its ok to take meds for seasonal allergies - flonase and antihistamines like zyrtec (cetirizine) and yasmin (fexofenadine) etc You seem to have a bacterial bronchitis that's aggravating your lungs - this is getting better on antibiotic (doxycycline). This antibiotic could cause nausea or diarrhea, and it causes a sun sensitive rash. You could take a probiotic to prevent diarrhea. Get immediate medical attention if you're having more episodes of passing out. If you get lightheaded, sit down right away (even on the floor!). No driving as per your sternal precautions and avoid activities where falling or passing out could be dangerous. A good amount of activity for you right now is walking on relatively flat ground. If you're feeling out of breath like you can't carry on a complete conversation, rest or slow down. Eventually your doctors will clear you for more exercise. Follow up with Dr. Cobian and with [facility] as scheduled It was a pleasure taking care of you in the hospital, Jennifer Whitney MD Total Time Total Time Spent Total Time Spent (In Minutes): I personally spent: 40 minutes today on clinical care activities including: reviewing chart notes and vital signs reviewing labs reviewing studies discussion with supply chain consultant(s) examining and counseling the patient counseling the patient's family writing prescriptions, discharge instructions documentation Coding Level of Care Code 36233 INP/OBS DISCH >30 MIN Diagnoses Paroxysmal atrial fibrillation I48.0 Pericardial effusion I31.39 Non-sustained ventricular tachycardia I47.2 Syncope R55
--- NOTE | 2025-02-21 18:28 | Hospitalist Progress Note ---
Date of Service February 21, 2025 Assessment & Plan (1) Paroxysmal atrial fibrillation: (2) Pericardial effusion: (3) Non-sustained ventricular tachycardia: (4) Syncope: Plan 64-year-old male with history of severe MR status post mitral valve repair, atrial clip and ablation performed at [facility] on 02/08/2025. He came in with episodes of lightheadedness and a syncopal/presyncopal episode witnessed by this . He was found to be in AF with RVR, NSVT / frequent ectopy and large pericardial effusion. He had postop afib and was cardioverted, has been on amiodarone and toprol XL. Consulted cardiology Dr. Kapadia #Syncope - could have been related to afib, VT or another arrhythmia lightheaded episode 02/18 that correlated with a brief episode of narrow complex SVT which was faster than expect for afib - reviewed strip which is in chart -continue monitor - on tele today less PVCs no VTs #Atrial fibrillation with RVR - postop afib and still may long-term resolve -converted to NSR evening of 02/18 after amiodarone bolus and drip -continue toprol XL -changed amio to 200 tid po today - was scheduled to go to 200 daily right about now previosuly #Frequent ectopy and NSVT -improved. #Pericardial effusion -obtained TTE which shows EF 45-50%, trace MR, mild-mod TR, moderate posterior pericardial effusion without RV collapse, no e/o tamponade -discussed with Dr. Cobian - limited TTE in AM to see whether stable since effusion is large and postop described as small #Mild elevation of HS-troponin 146-->138. No evidence of ACS. elevation might still be related to valve surgery or myocardial demand ischemia from arrhythmia #Productive cough - Bibasilar coarse crackles on exam, though still expect atelectasis. No peripheral edema. consider pneumonia or tracheobronchitis. WBC elevated at 15-->12 but chest CTA with clear lungs. Procal negative -course of doxycycline for bronchitis - definitely improved -CBC am #history of DM type 2, resolved after 50 pounds weight loss #HTN - meds above #HLD - statin Discussed POC with Mr Enriquez and his 02/21 Admission and Anticipated Discharge Date Admission Date: February 17, 2025 Subjective Feeling good overall. Walking a lot of laps. Fatigue improving and no presyncope Cough improved, sputum now clear Physical Exam 2 Physical Exam: Last 24h vitals reviewed GEN: sitting EOB HEENT: pupils equal, sclerae anicteric, moist MM RESP: normal WOB CV:median sternotomy healing well ABD: soft/nt/nd +BT : no washburn SKIN: warm and dry, no generalized rashes NEURO: AOx person, place, and situation. Face symmetric, speech normal, moves 4 ext spontaneously and equally Results & Data Results & Data Vital Signs (Past 12 Hours) Vital Signs Temp Pulse Pulse Resp BP Pulse Ox O2 Del Method 02/21/25 16:46 36.4 C L 81 18 122/75 95 Room Air 02/21/25 13:00 81 02/21/25 11:16 36.8 C 79 18 104/69 96 Room Air 02/21/25 07:14 36.9 C 73 18 109/74 93 Room Air Laboratory Results 02/20/25 07:45 02/21/25 05:40 PG Care Time/CCT Total # of Minutes Spent Total Time Spent with Patient: Total time spent is greater than 50% in coordination of care (as documented) at patient's floor/unit and/or counseling patient: Coding Level of Care Code 33724 SUB INP/OBS CARE 2/35MIN Diagnoses Paroxysmal atrial fibrillation I48.0 Pericardial effusion I31.39 Non-sustained ventricular tachycardia I47.2 Syncope R55
--- NOTE | 2025-02-21 18:29 | Cardiology Progress Note ---
Date of Service February 21, 2025 Assessment & Plan (1) Acute pericardial effusion: (2) Near syncope: (3) Mitral regurgitation: (4) S/P mitral valve repair: (5) Paroxysmal atrial fibrillation: (6) NSVT (nonsustained ventricular tachycardia): Plan ASSESSMENT/PLAN: 1. Pericardial effusion: Clinically appears well. No obvious tamponade physiology despite what appears to be large pericardial effusion on 02/18/2025 echo (described as small at [facility] postoperatively). Recommend limited echo tomorrow to ensure stability. No symptoms to suggest pericarditis or postpericardiotomy syndrome. 2. Mitral valve regurgitation s/p mitral valve repair: History of MVP and severe MR, and underwent mitral valve repair with #31 Valentine band on 02/08/2025. SBE prophylaxis. Seems to be doing well in this regard. 3. Paroxysmal atrial fibrillation s/p MAZE (PVI with cryo): Was in atrial fibrillation here but converted on 02/18/2025 while on intravenous amiodarone. Underwent cardioversion on 02/12/2025 at [facility] postoperatively. Ideally, would recommend anticoagulation therapy for stroke risk reduction however with apparent increasing pericardial effusion size, hold off for now. Continue amiodarone 200 mg p.o. 3 times daily for now but on discharge, would likely recommend 200 mg once daily. Had been on flecainide in the past, prior to mitral valve repair. 4. Amiodarone therapy: Monitor transaminase levels and TSH as well as outpatient ECGs. Hopefully amiodarone can be discontinued in the next couple of months. 5. Nonsustained ventricular tachycardia: Noted on telemetry by EP. No significant VT recently on telemetry on personal review. 6. Disposition: Limited echo tomorrow. Patient care discussed with Dr. Whitney of the primary hospitalist service. Follow-up with me in the office in the next 1 to 2 weeks. Admission and Anticipated Discharge Date Admission Date: February 17, 2025 Subjective Was contacted by Dr. Whitney of the primary hospitalist service to evaluate patient prior to potential discharge in the near future. He feels much better overall since hospitalization. He has not had any further near syncope. He had been coughing up yellow sputum which has significantly improved. He is walking in the hallway several laps and feels well without chest pain or shortness of breath. He denies pleuritic chest pain, positional chest pain, syncope, palpitations, edema, melena, hematochezia, hematuria, or drainage from his sternotomy site. [facility] discharge summary was reviewed today. There was note of a small pericardial effusion. It was documented that they were hoping to start anticoagulation therapy but due to a pericardial effusion, anticoagulation therapy was not initiated. He underwent cardioversion on 02/12/2025 before discharge and was sent home on amiodarone 200 mg 3 times daily. He was also sent home on colchicine but only took 1 dose. Exercise tolerance has improved even during this hospital stay. He recalls having a cardiac catheterization in January 2025 at [facility] and reports that it was unremarkable. His was present at the bedside. Physical Exam Physical Exam: Gen.: No acute distress. Alert and oriented. HEENT: Anicteric sclera. Neck: No JVD. No hepatojugular reflux. Cardiac: Regular. Normal S1-S2. No murmurs, rubs, or gallops. Pulmonary: Clear to auscultation bilaterally without wheezes, rales, or rhonchi. Abdomen: Soft, nontender, nondistended, with normoactive bowel sounds. No bruits noted. Extremities: 2+ radial pulses bilaterally. 2+ posterior tibialis pulses bilaterally. No edema or cyanosis. Psychiatric: Affect appears appropriate. Chest: Sternotomy site was clean, dry, and intact without erythema or discharge. Results & Data Vital Signs (Past 12 Hours) Vital Signs Temp Pulse Pulse Resp BP Pulse Ox O2 Del Method 02/21/25 16:46 36.4 C L 81 18 122/75 95 Room Air 02/21/25 13:00 81 02/21/25 11:16 36.8 C 79 18 104/69 96 Room Air 02/21/25 07:14 36.9 C 73 18 109/74 93 Room Air Intake & Output 02/19/25 02/20/25 02/21/25 02/22/25 06:59 06:59 06:59 06:59 Intake Total 920 / 920 1156.185 / 5009.324 6487.000 / 1550.000 866.682 / 866.682 Output Total 1395 / 1395 2650 / 2650 2101 / 2101 350 / 350 Balance -475 / -475 -1493.815 / -1493.815 -551.000 / -551.000 516.682 / 516.682 Weight 208 lb 6.412 oz 206 lb 5.643 oz 206 lb 5.643 oz Laboratory Results Laboratory Results - last 24 hr 02/21/25 05:40 Sodium 140 Potassium 3.8 Chloride 106 Carbon Dioxide 28 Anion Gap 6 BUN 9 Creatinine 0.78 Est Cr Clr Drug Dosing 104.8 eGFR 98.97 BUN/Creatinine Ratio 11.5 Glucose 130 H Calcium 9.3 Diagnostic Findings Labs reviewed and notable for normal potassium and renal function. Echo images personally reviewed from 02/18/2025 and notable for large pericardial effusion, predominantly posteriorly. Telemetry personally reviewed: Sinus rhythm. Discharge summary from [facility] reviewed. Medications Administered Current Inpatient Medications Acetaminophen (Acetaminophen 325 Mg Tab) 650 mg PO Q4H PRN PRN Reason: Pain or Fever Stop: 03/19/25 21:52 Last Admin: 02/21/25 13:36 Dose: 650 mg Amiodarone HCl (Amiodarone 200 Mg Tab) 200 mg PO TIDM [facility] Stop: 03/23/25 07:59 Last Admin: 02/21/25 16:59 Dose: 200 mg Aspirin (Aspirin 81 Mg Ectab) 81 mg PO DAILY [facility] Stop: 03/20/25 08:59 Last Admin: 02/21/25 07:57 Dose: 81 mg Docusate Sodium (Docusate Sodium 100 Mg Cap) 100 mg PO BID PRN PRN Reason: Constipation Stop: 03/19/25 21:52 Last Admin: 02/18/25 20:26 Dose: 100 mg Doxycycline Hyclate (Doxycycline Hyclate 100 Mg Cap) 100 mg PO BID EVIE Stop: 02/24/25 13:09 Last Admin: 02/21/25 07:57 Dose: 100 mg Guaifenesin (Guaifenesin 600 Mg Tabcr) 600 mg PO Q12 EVIE Stop: 03/21/25 08:59 Last Admin: 02/21/25 07:59 Dose: 600 mg Lorazepam (Lorazepam 1 Mg Tab) 1 mg SL Q8H PRN PRN Reason: sleep or anxiety/panic attack Stop: 03/20/25 18:54 Last Admin: 02/18/25 20:26 Dose: 1 mg Melatonin (Melatonin 3 Mg Tab) 6 mg PO HS PRN PRN Reason: Sleep Stop: 03/20/25 22:36 Last Admin: 02/20/25 20:15 Dose: 6 mg Metoprolol Succinate (Metoprolol Succ 50mg Ext Rel Tab) 100 mg PO BID EVIE Stop: 03/23/25 08:59 Last Admin: 02/21/25 07:59 Dose: 100 mg Ondansetron HCl (Ondansetron Inj 2 Mg/Ml 2 Ml Vial) 4 mg IV Q6H PRN PRN Reason: Nausea And Vomiting Stop: 03/19/25 21:52 Polyethylene Glycol (Polyethylene (Miralax) 17 Gm Pack) 17 gm PO DAILY PRN PRN Reason: Constipation Stop: 03/19/25 21:52 Rosuvastatin Calcium (Rosuvastatin Calcium 20 Mg Tab) 20 mg PO DAILY [facility] Stop: 03/20/25 08:59 Last Admin: 02/21/25 07:57 Dose: 20 mg PG Care Time/CCT Total # of Minutes Spent Total Time Spent with Patient: Total time spent is greater than 50% in coordination of care (as documented) at patient's floor/unit and/or counseling patient: Coding Level of Care Code 02483 SUB INP/OBS CARE 3/50MIN Diagnoses Acute pericardial effusion I30.9 Near syncope R55 Mitral regurgitation I34.0 S/P mitral valve repair Z98.890 Paroxysmal atrial fibrillation I48.0 NSVT (nonsustained ventricular tachycardia) I47.29
[2025-02-21] MEDS: DICLOFENAC SOD 1% GEL 100 GM TUBE EXT SCH (21:44)
[2025-02-22 03:28] VITALS: TEMP 98.4
[2025-02-22 05:48] LABS: Hematocrit (blood only) 31.7 % (42.0-52.0); Hemoglobin 11.0 g/dl (14.0-18.0); Mean Corpuscular Hemoglobin 31.1 pg (25.0-34.0); Mean Corpuscular Volume 89.5 fL (80.0-100.0); Platelet Count 341 K/uL (130-400); RDW Standard Deviation 42.4 fL (36.4-46.3); Red Blood Count 3.54 M/uL (4.70-6.10); White Blood Count 9.59 K/ul (4.8-10.8)
[2025-02-22 06:06] LABS: Anion Gap 7.0 (3-11); Blood Urea Nitrogen 11.0 mg/dl (6-23); Calcium 9.3 mg/dl (8.6-10.3); Carbon Dioxide 25.0 mmol/L (21-32); Chloride 107.0 mmol/L (98-107); Creatinine Clr Calc Pharmacy 112.0 ml/min; Glucose 129.0 mg/dl (70-99(Fasting)); Magnesium 2.1 mg/dl (1.7-2.4); Potassium 3.9 mmol/L (3.5-5.1); Sodium 139.0 mmol/L (136-145)
[2025-02-22 06:21] LABS: Thyroid Stimulating Hormone 5.874 uIu/ml (0.300-4.500)
[2025-02-22 07:16] VITALS: BP 105/64; RESP 18
[2025-02-22 08:24] VITALS: O2SAT 96
--- NOTE | 2025-02-22 09:27 | Cardiology Progress Note ---
Date of Service February 22, 2025 Assessment & Plan (1) Acute pericardial effusion: (2) Near syncope: (3) Mitral regurgitation: (4) S/P mitral valve repair: (5) Paroxysmal atrial fibrillation: (6) NSVT (nonsustained ventricular tachycardia): Plan ASSESSMENT/PLAN: 1. Pericardial effusion: Pericardial effusion has improved and remains moderate to large. No tamponade physiology noted on echo and clinically doing very well. No symptoms to suggest pericarditis or postpericardiotomy syndrome. Will repeat echo in the outpatient setting after follow-up. 2. Mitral valve regurgitation s/p mitral valve repair: History of MVP and severe MR, and underwent mitral valve repair with #31 Valentine band on 02/08/2025. SBE prophylaxis. Seems to be doing well in this regard. 3. Paroxysmal atrial fibrillation s/p MAZE (PVI with cryo): Was in atrial fibrillation here but converted on 02/18/2025 while on intravenous amiodarone. Underwent cardioversion on 02/12/2025 at [facility] postoperatively. Ideally, would recommend anticoagulation therapy for stroke risk reduction however with significant pericardial effusion, will continue to hold off for now. Continue amiodarone 200 mg p.o. 3 times daily for now but on discharge, would recommend 200 mg once daily. Had been on flecainide in the past, prior to mitral valve repair. 4. Amiodarone therapy: Monitor transaminase levels and TSH as well as outpatient ECGs. Hopefully amiodarone can be discontinued in the next couple of months. 5. Nonsustained ventricular tachycardia: Noted on telemetry by EP. No significant VT recently on telemetry on personal review. 6. Disposition: Can be discharged home from a cardiology perspective. Follow- up with me in 1 to 2 weeks as already arranged. Patient care communicated with Dr. Whitney of the primary hospitalist service. Admission and Anticipated Discharge Date Admission Date: February 17, 2025 Subjective Patient seen this morning with his present at the bedside. He continues to ambulate the hallway without chest pain. He denies shortness of breath, orthopnea, syncope, near syncope, palpitations, or edema. Physical Exam Physical Exam: Gen.: No acute distress. Alert and oriented. HEENT: Anicteric sclera. Neck: No JVD. Cardiac: Regular. Normal S1-S2. No murmurs, rubs, or gallops. Pulmonary: Clear to auscultation bilaterally without wheezes, rales, or rhonchi. Abdomen: Soft, nontender, nondistended, with normoactive bowel sounds. No bruits noted. Extremities: 2+ radial pulses bilaterally. 2+ posterior tibialis pulses bilaterally. No edema or cyanosis. Psychiatric: Affect appears appropriate. Results & Data Vital Signs (Past 12 Hours) Vital Signs Temp Pulse Pulse Resp BP BP Pulse Ox 02/22/25 08:23 96 02/22/25 07:30 72 02/22/25 07:15 36.9 C 75 18 105/64 02/22/25 03:27 36.9 C 71 16 109/72 92 02/21/25 22:40 37.4 C 77 20 127/79 95 02/21/25 22:37 78 O2 Del Method 02/22/25 08:23 Room Air 02/22/25 07:30 02/22/25 07:15 Room Air 02/22/25 03:27 Room Air 02/21/25 22:40 Room Air 02/21/25 22:37 Laboratory Results Laboratory Results - last 24 hr 02/22/25 05:29 WBC 9.59 RBC 3.54 L Hgb 11.0 L Hct 31.7 L MCV 89.5 MCH 31.1 MCHC 34.7 RDW Std Deviation 42.4 RDW Coeff of Alireza 12.9 Plt Count 341 MPV 9.0 L Sodium 139 Potassium 3.9 Chloride 107 Carbon Dioxide 25 Anion Gap 7 BUN 11 Creatinine 0.73 Est Cr Clr Drug Dosing 112.0 eGFR 100.97 BUN/Creatinine Ratio 15.1 Glucose 129 H Calcium 9.3 Magnesium 2.1 TSH 5.874 H Diagnostic Findings ECHO 02/22/25: 1. Top normal left ventricular size with low-normal systolic function. Estimated EF 50%. No regional wall motion abnormalities. Septal motion consistent with prior cardiac surgery. Mild concentric left ventricular hypertrophy. 2. Circumferential pericardial effusion which is moderate to large posteriorly, but otherwise small. No echocardiographic evidence of tamponade physiology. 3. Limited 2D echo with limited spectral and color Doppler. 4. Compared to prior study on 02/18/2025, pericardial effusion has decreased in size. Telemetry personally reviewed: Sinus rhythm. Labs reviewed from 02/22/2025: Mild but stable anemia, stable renal function, normal potassium. Medications Administered Current Inpatient Medications Acetaminophen (Acetaminophen 325 Mg Tab) 650 mg PO Q4H PRN PRN Reason: Pain or Fever Stop: 03/19/25 21:52 Last Admin: 02/22/25 00:49 Dose: 650 mg Amiodarone HCl (Amiodarone 200 Mg Tab) 200 mg PO TIDM [facility] Stop: 03/23/25 07:59 Last Admin: 02/22/25 08:03 Dose: 200 mg Aspirin (Aspirin 81 Mg Ectab) 81 mg PO DAILY [facility] Stop: 03/20/25 08:59 Last Admin: 02/22/25 08:03 Dose: 81 mg Diclofenac Sodium (Diclofenac Sod 1% Gel 100 Gm Tube) 2 gm EXT BID [facility]; Protocol Stop: 03/23/25 20:59 Last Admin: 02/22/25 08:03 Dose: Not Given Docusate Sodium (Docusate Sodium 100 Mg Cap) 100 mg PO BID PRN PRN Reason: Constipation Stop: 03/19/25 21:52 Last Admin: 02/18/25 20:26 Dose: 100 mg Doxycycline Hyclate (Doxycycline Hyclate 100 Mg Cap) 100 mg PO BID [facility] Stop: 02/24/25 13:09 Last Admin: 02/22/25 08:03 Dose: 100 mg Guaifenesin (Guaifenesin 600 Mg Tabcr) 600 mg PO Q12 [facility] Stop: 03/21/25 08:59 Last Admin: 02/22/25 08:03 Dose: 600 mg Lorazepam (Lorazepam 1 Mg Tab) 1 mg SL Q8H PRN PRN Reason: sleep or anxiety/panic attack Stop: 03/20/25 18:54 Last Admin: 02/18/25 20:26 Dose: 1 mg Melatonin (Melatonin 3 Mg Tab) 6 mg PO HS PRN PRN Reason: Sleep Stop: 03/20/25 22:36 Last Admin: 02/21/25 21:09 Dose: 6 mg Metoprolol Succinate (Metoprolol Succ 50mg Ext Rel Tab) 100 mg PO BID [facility] Stop: 03/23/25 08:59 Last Admin: 02/22/25 08:03 Dose: 100 mg Ondansetron HCl (Ondansetron Inj 2 Mg/Ml 2 Ml Vial) 4 mg IV Q6H PRN PRN Reason: Nausea And Vomiting Stop: 03/19/25 21:52 Polyethylene Glycol (Polyethylene (Miralax) 17 Gm Pack) 17 gm PO DAILY PRN PRN Reason: Constipation Stop: 03/19/25 21:52 Rosuvastatin Calcium (Rosuvastatin Calcium 20 Mg Tab) 20 mg PO DAILY [facility] Stop: 03/20/25 08:59 Last Admin: 02/22/25 08:03 Dose: 20 mg PG Care Time/CCT Total # of Minutes Spent Total Time Spent with Patient: Total time spent is greater than 50% in coordination of care (as documented) at patient's floor/unit and/or counseling patient: Coding Level of Care Code 38107 SUB INP/OBS CARE 3/50MIN Diagnoses Acute pericardial effusion I30.9 Near syncope R55 Mitral regurgitation I34.0 S/P mitral valve repair Z98.890 Paroxysmal atrial fibrillation I48.0 NSVT (nonsustained ventricular tachycardia) I47.29
--- NOTE | 2025-02-22 09:27 | XCELERA ---
[id number]
[2025-02-22 11:28] VITALS: PULSE 75
== END 2025-02-22 12:18 | disposition home or self-care (01) | DRG 315 ==
LOC: ED 16:29 → SUATTDRO 20:28 → 2E 20:28